=== PATIENT | male | born 1955 | race Caucasian/White ===

== ENCOUNTER → 2016-08-11 | Outpatient (CLI) | payer BC ==
[2016-08-11 08:54] LABS: ALT 41 U/L (21-72); AST 25 U/L (17-59); Cholesterol 139 mg/dL (<200); HDL Cholesterol 54 mg/dL (40-60); Triglycerides 73 mg/dL (<150)
== END | disposition home or self-care (01) ==
LOC: LABWHC1 08:08
PROVIDERS: ATTEND Internal Medicine Interventional Cardiology
DX: E78.2 Mixed hyperlipidemia (principal)
CPT/HCPCS: 36415; 80061; 84450; 84460

== ENCOUNTER 2016-09-27 15:45 | Emergency (ER) | payer BC ==
[2016-09-27 16:10] VITALS: BP 156/89; PULSE 77; RESP 18; TEMP 97.9
--- NOTE | 2016-09-27 16:35 | ED ---
Fall HPI - General Chief Complaint: Fall Stated Complaint: Fall/Rt side pain Time Seen by Provider: 09/27/16 16:19 Source: patient, RN notes reviewed Mode of arrival: ambulatory - History of Present Illness Initial Comments: Patient is a 61-year-old male presents emergency room for evaluation of fall injury. Patient states he fell off his truck onto [address]. Patient states he landed on posterior right ribs. Patient states when having pain ever since. Patient states the incident happened around 10:00 this morning. Patient states he took Aleve with relief of symptoms. Patient states the pain is worse when he twists or presses at the area. Patient denies any trouble breathing or shortness of breath. Patient states the pain is not any worse when he takes a deep breath. Patient denies head trauma or loss of consciousness. Patient denies taking blood thinners. Patient denies any other injuries during incident. Patient denies smoking. - Related Data Allergies Allergy/AdvReac Type Severity Reaction Status Date / Time No Known Allergies Allergy Verified 09/27/16 16:10 Review of Systems ROS Statement: Those systems with pertinent positive or pertinent negative responses have been documented in the HPI. ROS Other: All systems not noted in ROS Statement are negative. Past Medical History Past Medical History: Coronary Artery Disease (CAD), Hypertension History of Any Multi-Drug Resistant Organisms: None Reported Past Surgical History: Heart Catheterization With Stent Past Psychological History: No Psychological Hx Reported Smoking Status: Former smoker Past Alcohol Use History: None Reported Past Drug Use History: None Reported General Exam - General Exam Comments Initial Comments: Sitting in exam room, no acute distress. Limitations: no limitations General appearance: alert, in no apparent distress Head exam: Present: atraumatic, normocephalic, normal inspection Eye exam: Present: normal appearance ENT exam: Present: normal exam Neck exam: Present: normal inspection Respiratory exam: Present: normal lung sounds bilaterally, chest wall tenderness (Pain and tenderness on palpating over the posterior 7/8/9 rib area. No ecchymosis or swelling noted.). Absent: respiratory distress Cardiovascular Exam: Present: regular rate, normal rhythm, normal heart sounds Extremities exam: Present: normal inspection Back exam: Present: normal inspection Neurological exam: Present: alert, oriented X3, CN II-XII intact, normal gait Psychiatric exam: Present: normal affect, normal mood Skin exam: Present: warm, dry, intact, normal color. Absent: rash Course Vital Signs 09/27/16 16:05 Temperature 97.9 F Pulse Rate 77 Respiratory 18 Rate Blood Pressure 156/89 O2 Sat by Pulse 97 Oximetry Medical Decision Making - Medical Decision Making Patient is a 61-year-old male presents emergency room for evaluation of right posterior rib pain after fall. Chest x-ray significant for a rib fracture and possibly ninth rib fracture. Patient declined any pain medications. Patient states he will continue taking Tylenol and Motrin. Advised patient to apply ice over the area. Advised patient to follow-up with his primary care provider for reevaluation. Patient states he understands everything that was discussed with him. Return parameters discussed. Case discussed with Dr. Agudelo. - Radiology Data Radiology results: report reviewed, image reviewed Disposition Clinical Impression: Rib fracture Disposition: HOME SELF-CARE Condition: Good Instructions: Rib Fracture (ED) Additional Instructions: Ice on and off for 10-15 minutes for the next 24-48 hours. Take Tylenol or Motrin as needed for pain. Please follow-up with primary care provider in 24- 48 hours for reevaluation. If new symptoms develop or symptoms worsen, please return to the ER. Referrals: None,Stated [Primary Care Provider] - 1-2 days Time of Disposition: 16:56
--- NOTE | 2016-09-27 17:35 | XR ---
PA chest x-ray with right RIBS HISTORY: Right rib pain, trauma Frontal view of the chest, 4 views of the right RIBS No comparisons There is no pneumothorax or pleural effusion. Cardiac mediastinal silhouette, pulmonary vascularity a nd tarsha within normal limits. Old right-sided rib fracture present at the fourth rib and fifth rib on the right. Eighth and ninth ribs on the right show nondisplaced fractures. IMPRESSION: Eighth rib laterally on the right shows a fracture without displacement, suspect the nint h rib is also fractured
== END 2016-09-27 17:19 | disposition home or self-care (01) ==
LOC: EC 15:45
DX: S22.39XA Fracture of one rib, unspecified side, initial encounter for closed fracture (principal); Z87.891 Personal history of nicotine dependence; W17.89XA Other fall from one level to another, initial encounter; Y93.39 Activity, other involving climbing, rappelling and jumping off
CPT/HCPCS: 99283

== ENCOUNTER → 2017-01-16 | Outpatient (CLI) | payer BC ==
[2017-01-16 10:30] LABS: ALT 52 U/L (21-72); AST 25 U/L (17-59); Alkaline Phosphatase 74 U/L (38-126); Anion Gap 10 mmol/L; Blood Urea Nitrogen 19 mg/dL (9-20); Calcium 9.9 mg/dL (8.4-10.2); Carbon Dioxide 26 mmol/L (22-30); Chloride 104 mmol/L (98-107); Cholesterol 139 mg/dL (<200); Glucose 110 mg/dL (74-99); HDL Cholesterol 50 mg/dL (40-60); Non-African American GFR(MDRD) >60 (>60 ml/min/1.73 sqM); Potassium 5.2 mmol/L (3.5-5.1); Sodium 140 mmol/L (137-145); Total Bilirubin 1.8 mg/dL (0.2-1.3); Total Protein 7.4 g/dL (6.3-8.2)
== END | disposition home or self-care (01) ==
LOC: LABWHC1 08:38
PROVIDERS: ATTEND Internal Medicine Interventional Cardiology
DX: E78.2 Mixed hyperlipidemia (principal)
CPT/HCPCS: 36415; 80053; 80061

== ENCOUNTER → 2017-07-13 | Outpatient (CLI) | payer BC ==
[2017-07-13 10:06] LABS: ALT 39 U/L (21-72); AST 24 U/L (17-59); Albumin 4.4 g/dL (3.5-5.0); Alkaline Phosphatase 54 U/L (38-126); Anion Gap 9 mmol/L; Blood Urea Nitrogen 12 mg/dL (9-20); Calcium 9.5 mg/dL (8.4-10.2); Carbon Dioxide 29 mmol/L (22-30); Chloride 103 mmol/L (98-107); Cholesterol 121 mg/dL (<200); Glucose 100 mg/dL (74-99); HDL Cholesterol 54 mg/dL (40-60); LDL Cholesterol,Calculated 58 mg/dL (0-99); Potassium 4.6 mmol/L (3.5-5.1); Sodium 141 mmol/L (137-145); Total Bilirubin 1.3 mg/dL (0.2-1.3); Total Protein 6.9 g/dL (6.3-8.2); Triglycerides 46 mg/dL (<150)
== END | disposition home or self-care (01) ==
LOC: LABWHC1 08:30
PROVIDERS: ATTEND Internal Medicine Interventional Cardiology
DX: E78.2 Mixed hyperlipidemia (principal)
CPT/HCPCS: 36415; 80053; 80061

== ENCOUNTER → 2018-01-23 | Outpatient (CLI) | payer BC ==
[2018-01-23 08:20] LABS: ALT 50 U/L (21-72); AST 30 U/L (17-59); Cholesterol 139 mg/dL (<200); HDL Cholesterol 57 mg/dL (40-60); LDL Cholesterol,Calculated 70 mg/dL (0-99); Triglycerides 61 mg/dL (<150)
== END | disposition home or self-care (01) ==
LOC: LABWHC1 07:41
PROVIDERS: ATTEND Internal Medicine Interventional Cardiology
DX: E78.2 Mixed hyperlipidemia (principal)
CPT/HCPCS: 36415; 80061; 84450; 84460

== ENCOUNTER → 2018-06-21 | Outpatient (CLI) | payer MEDICARE, BC ==
[2018-06-21 09:30] LABS: Basophils # (A) 0.1 k/uL (0-0.2); Basophils % (A) 1 %; Eosinophils # (A) 0.4 k/uL (0-0.7); Eosinophils % (A) 7 %; HCT 45.8 % (39.0-53.0); HGB 15.4 gm/dL (13.0-17.5); Lymphocytes # (A) 1.7 k/uL (1.0-4.8); Lymphocytes % (A) 30 %; MCH 29.4 pg (25.0-35.0); MCHC 33.6 g/dL (31.0-37.0); MCV 87.3 fL (80.0-100.0); Mean Platelet Volume 6.3; Monocytes # (A) 0.3 k/uL (0-1.0); Monocytes % (A) 6 %; Neutrophils # (A) 2.8 k/uL (1.3-7.7); Neutrophils % (A) 52 %; Platelet Count 281 k/uL (150-450); RBC 5.24 m/uL (4.30-5.90); RDW 12.9 % (11.5-15.5); WBC 5.5 k/uL (3.8-10.6)
[2018-06-23 09:44] LABS: Albumin 4.8 g/dL (3.80-4.90); Albumin/Globulin Ratio 2.18 (1.20-2.10); Anion Gap 8.3 mmol/L (4.00-12.00); Calcium 9.7 mg/dL (8.7-10.3); Carbon Dioxide 25.7 mmol/L (21.6-31.8); Globulin 2.2 g/dL (1.6-3.3); Potassium 4.6 mmol/L (3.5-5.5); Total Bilirubin 1.6 mg/dL (0.3-1.2)
[2018-06-23 09:51] LABS: T4, Free (Free Thyroxine) 1.1 ng/dL (0.80-1.80)
== END ==
LOC: LABWHC1 08:43
PROVIDERS: ATTEND Internal Medicine
DX: E78.00 Pure hypercholesterolemia, unspecified (principal); I10 Essential (primary) hypertension; K62.5 Hemorrhage of anus and rectum; Z12.5 Encounter for screening for malignant neoplasm of prostate
CPT/HCPCS: 84439; 80061; 80053; 84443; 85025; 36415; G0103

== ENCOUNTER → 2019-03-07 | Outpatient (CLI) | payer MEDICARE, BC ==
[2019-03-07 08:39] LABS: HCT 44.9 % (39.0-53.0); HGB 15.3 gm/dL (13.0-17.5); MCH 30.1 pg (25.0-35.0); MCV 88.5 fL (80.0-100.0); Mean Platelet Volume 5.7; Platelet Count 266 k/uL (150-450); RBC 5.07 m/uL (4.30-5.90)
[2019-03-07 16:46] LABS: African American GFR (CKD) 90.5 (60.0-200.0); Albumin 4.7 g/dL (3.80-4.90); Albumin/Globulin Ratio 2.35 (1.60-3.17); Anion Gap 7.7 mmol/L (4.00-12.00); Calcium 9.6 mg/dL (8.7-10.3); Carbon Dioxide 27.3 mmol/L (21.6-31.8); Chol/HDL Ratio 2.6; LDL Cholesterol,Calculated 65.6 mg/dL (0.0-131.0); Potassium 4.7 mmol/L (3.5-5.5); Total Bilirubin 1.5 mg/dL (0.3-1.2); Total Protein 6.7 g/dL (6.2-8.2); VLDL Calculation 11.4 mg/dL (5.00-40.00)
== END | disposition home or self-care (01) ==
LOC: LABWHC1 08:06
PROVIDERS: ATTEND Nurse Practitioner Adult Health
DX: E78.2 Mixed hyperlipidemia (principal); I10 Essential (primary) hypertension; E78.00 Pure hypercholesterolemia, unspecified
CPT/HCPCS: 36415; 80053; 80061; 85027

== ENCOUNTER → 2019-05-15 | Outpatient (CLI) | payer MEDICARE, BC ==
--- NOTE | 2019-05-15 16:13 | XR ---
EXAMINATION TYPE: XR knee limited RT DATE OF EXAM: 05/15/2019 CLINICAL HISTORY: pain TECHNIQUE: Three views of the right knee are obtained. COMPARISON: None. FINDINGS: There is no acute fracture/dislocation. The tri-compartment joint spaces appear within no rmal limits. The overlying soft tissue appears unremarkable. IMPRESSION: There is no acute fracture or dislocation.ICD 10 NO FRACTURE, INITIAL EVALUATION
== END | disposition home or self-care (01) ==
LOC: RADXRYALE 15:53
PROVIDERS: ATTEND Internal Medicine
DX: M25.561 Pain in right knee (principal)

== ENCOUNTER → 2019-11-10 | Outpatient (CLI) | payer MEDICARE ==
[2019-11-10 16:37] LABS: LDL Cholesterol,Calculated 78.8 mg/dL (0.0-131.0); VLDL Calculation 15.2 mg/dL (5.00-40.00)
== END | disposition home or self-care (01) ==
LOC: LABWHC1 07:54
PROVIDERS: ATTEND Nurse Practitioner Adult Health
DX: E78.2 Mixed hyperlipidemia (principal)
CPT/HCPCS: 36415; 80061; 84450; 84460

== ENCOUNTER → 2020-02-29 | Outpatient (CLI) | payer MEDICARE, BC | END | disposition home or self-care (01) | LOC: LABWHC1 14:16 | PROVIDERS: ATTEND Internal Medicine | DX: R19.7 Diarrhea, unspecified (principal) | CPT/HCPCS: U0003; C9803 ==

== ENCOUNTER 2020-03-18 19:48 | Observation (INO) | payer MEDICARE, BC ==
[2020-03-18] MEDS ORDERED: ASPIRIN 81 MG PO STA (20:10)
--- NOTE | 2020-03-18 20:41 | ED ---
General Adult HPI - General Chief complaint: Shortness of Breath Stated complaint: chills,sob Time Seen by Provider: 03/18/20 20:01 Source: patient Mode of arrival: ambulatory Limitations: no limitations - History of Present Illness Initial comments: 65 year-old male patient with past history significant for hypertension and hyperlipidemia, presents to the emergency department for evaluation of chest pain and feeling unwell. Patient states that symptoms started a little over two weeks ago when he had an illness with vomiting and diarrhea. States that he did stop vomiting and bowel movements are now normal he still does not feel well. He states that he has intermittent substernal chest pain. Intermittent nausea, heart burn, and lack of appetite. States that he feels mildly short of breath also intermittently. He is also reporting generalized fatigue. He did have a nuclear stress test about two weeks ago, states that one portion was "abnormal" so they did not have him complete the treadmill portion. Patient denies any recent rash, fever, chills, cough, abdominal pain, diarrhea, constipation, back pain, numbness, tingling, dizziness, hematuria, dysuria, urinary urgency, urinary frequency, headache, visual changes, or any other complaints. - Related Data Home Medications Medication Instructions Recorded Confirmed Aspirin EC [Ecotrin] 325 mg PO DAILY 03/18/20 03/18/20 Atorvastatin Calcium [Lipitor] 40 mg PO DAILY 03/18/20 03/18/20 Cholecalciferol [Vitamin D3 (25 1,000 unit PO DAILY 03/18/20 03/18/20 Mcg = 1000 Iu)] Metoprolol Tartrate [Lopressor] 100 mg PO BID 03/18/20 03/18/20 Multivitamins, Thera [Multivitamin 1 tab PO DAILY 03/18/20 03/18/20 (formulary)] Omeprazole 20 mg PO DAILY 03/18/20 03/18/20 amLODIPine [Norvasc] 10 mg PO DAILY 03/18/20 03/18/20 Allergies Allergy/AdvReac Type Severity Reaction Status Date / Time No Known Allergies Allergy Verified 03/18/20 21:45 Review of Systems ROS Statement: Those systems with pertinent positive or pertinent negative responses have been documented in the HPI. ROS Other: All systems not noted in ROS Statement are negative. Past Medical History Past Medical History: Coronary Artery Disease (CAD), Hypertension History of Any Multi-Drug Resistant Organisms: None Reported Past Surgical History: Heart Catheterization With Stent Past Psychological History: No Psychological Hx Reported Smoking Status: Never smoker Past Alcohol Use History: None Reported Past Drug Use History: None Reported General Exam Limitations: no limitations General appearance: alert, in no apparent distress, other (This is a well- developed, well-nourished adult male patient in no acute distress. Vital signs upon presentation are temperature 99.0F, pulse 99, respirations 22, blood pr essure 149/78, pulse ox 97% on room air.) Eye exam: Present: normal appearance, PERRL, EOMI. Absent: scleral icterus, conjunctival injection, periorbital swelling ENT exam: Present: normal exam, normal oropharynx, mucous membranes moist Respiratory exam: Present: normal lung sounds bilaterally. Absent: respiratory distress, wheezes, rales, rhonchi, stridor Cardiovascular Exam: Present: regular rate, normal rhythm, normal heart sounds. Absent: systolic murmur, diastolic murmur, rubs, gallop, clicks GI/Abdominal exam: Present: soft, normal bowel sounds. Absent: distended, tenderness, guarding, rebound, rigid Neurological exam: Present: alert, oriented X3, CN II-XII intact Psychiatric exam: Present: normal affect, normal mood Skin exam: Present: warm, dry, intact, normal color. Absent: rash Course Vital Signs 03/18/20 03/18/20 03/18/20 19:53 21:12 22:02 Temperature 99.0 F Pulse Rate 99 83 77 Pulse Rate [ Pulse Oximetery ] Respiratory 22 19 17 Rate Blood Pressure 149/78 138/80 116/73 Blood Pressure [Left Arm] O2 Sat by Pulse 97 96 95 Oximetry 03/18/20 22:56 Temperature 98.6 F Pulse Rate Pulse Rate [ 62 Pulse Oximetery ] Respiratory 17 Rate Blood Pressure Blood Pressure 114/69 [Left Arm] O2 Sat by Pulse 95 Oximetry EKG Findings - EKG Comments: EKG Findings:: EKG obtained at 2016 shows normal sinus rhythm with a left bundle branch block. Ventricular rate is 89, SD interval 192, QRS duration 142, QT 394, QTC 479. Medical Decision Making - Medical Decision Making 0-1-jucq-old male patient presents to the emergency department today for evaluation of multiple symptoms including chest pain, shortness of breath, fatigue. Physical examination is relatively unremarkable. Abdomen soft and nontender. Labs reviewed and did reveal decreased white blood cell count at 3.3 with low lymphocytes at 0.9. Glucose is 126. Troponin negative. EKG showed left bundle branch block, no previous for comparison the does report "abnormal EKG history". Patient will be admitted, serial troponins obtained. Cardiology will be consulted. - Lab Data Result diagrams: 03/18/20 20:54 03/18/20 20:54 Lab Results 03/18/20 03/18/20 03/18/20 Range/Units 20:54 20:54 20:54 WBC 3.3 L (3.8-10.6) k/uL RBC 4.91 (4.30-5.90) m/uL Hgb 14.2 (13.0-17.5) gm/dL Hct 42.1 (39.0-53.0) % MCV 85.7 (80.0-100.0) fL MCH 28.9 (25.0-35.0) pg MCHC 33.7 (31.0-37.0) g/dL RDW 12.2 (11.5-15.5) % Plt Count 279 (150-450) k/uL Neutrophils % 54 % Lymphocytes % 28 % Monocytes % 11 % Eosinophils % 1 % Basophils % 3 % Neutrophils # 1.8 (1.3-7.7) k/uL Lymphocytes # 0.9 L (1.0-4.8) k/uL Monocytes # 0.4 (0-1.0) k/uL Eosinophils # 0.0 (0-0.7) k/uL Basophils # 0.1 (0-0.2) k/uL PT 10.2 (9.0-12.0) sec INR 1.0 (<1.2) APTT 24.5 (22.0-30.0) sec Sodium 134 L (137-145) mmol/L Potassium 4.2 (3.5-5.1) mmol/L Chloride 103 (98-107) mmol/L Carbon Dioxide 25 (22-30) mmol/L Anion Gap 6 mmol/L BUN 16 (9-20) mg/dL Creatinine 0.82 (0.66-1.25) mg/dL Est GFR (CKD-EPI)AfAm >90 (>60 ml/min/1.73 sqM) Est GFR (CKD-EPI)NonAf >90 (>60 ml/min/1.73 sqM) Glucose 126 H (74-99) mg/dL Calcium 9.0 (8.4-10.2) mg/dL Magnesium 2.1 (1.6-2.3) mg/dL Total Bilirubin 0.9 (0.2-1.3) mg/dL AST 33 (17-59) U/L ALT 25 (4-49) U/L Alkaline Phosphatase 69 (38-126) U/L Troponin I (0.000-0.034) ng/mL Total Protein 6.9 (6.3-8.2) g/dL Albumin 4.0 (3.5-5.0) g/dL Lipase 62 (23-300) U/L 03/18/20 Range/Units 20:54 WBC (3.8-10.6) k/uL RBC (4.30-5.90) m/uL Hgb (13.0-17.5) gm/dL Hct (39.0-53.0) % MCV (80.0-100.0) fL MCH (25.0-35.0) pg MCHC (31.0-37.0) g/dL RDW (11.5-15.5) % Plt Count (150-450) k/uL Neutrophils % % Lymphocytes % % Monocytes % % Eosinophils % % Basophils % % Neutrophils # (1.3-7.7) k/uL Lymphocytes # (1.0-4.8) k/uL Monocytes # (0-1.0) k/uL Eosinophils # (0-0.7) k/uL Basophils # (0-0.2) k/uL PT (9.0-12.0) sec INR (<1.2) APTT (22.0-30.0) sec Sodium (137-145) mmol/L Potassium (3.5-5.1) mmol/L Chloride (98-107) mmol/L Carbon Dioxide (22-30) mmol/L Anion Gap mmol/L BUN (9-20) mg/dL Creatinine (0.66-1.25) mg/dL Est GFR (CKD-EPI)AfAm (>60 ml/min/1.73 sqM) Est GFR (CKD-EPI)NonAf (>60 ml/min/1.73 sqM) Glucose (74-99) mg/dL Calcium (8.4-10.2) mg/dL Magnesium (1.6-2.3) mg/dL Total Bilirubin (0.2-1.3) mg/dL AST (17-59) U/L ALT (4-49) U/L Alkaline Phosphatase (38-126) U/L Troponin I <0.012 (0.000-0.034) ng/mL Total Protein (6.3-8.2) g/dL Albumin (3.5-5.0) g/dL Lipase (23-300) U/L - Radiology Data Radiology results: report reviewed, image reviewed Two-view x-ray of the chest is obtained. Report was reviewed in its entirety. Impression by Dr. Monae shows minimal left basilar atelectasis. Otherwise no acute cardiopulmonary abnormality. Disposition Clinical Impression: Chest pain, Dyspnea, Fatigue Disposition: ADMITTED IP TO THIS [facility] Condition: Serious Decision to Admit Reason: Admit from EC Decision Date: 03/18/20 Decision Time: 22:30
--- NOTE | 2020-03-18 20:45 | XR ---
EXAMINATION TYPE: XR chest 2V DATE OF EXAM: 03/18/2020 COMPARISON: NONE HISTORY: Chest pain. TECHNIQUE: Frontal and lateral views of the chest are obtained. FINDINGS: There is minimal left basilar atelectasis. No pleural effusion, or pneumothorax seen. The cardiac silhouette size is within normal limits. The osseous structures are intact. IMPRESSION: Minimal left basilar atelectasis. Otherwise no acute cardiopulmonary abnormality.
[2020-03-18 21:15] LABS: Basophils # (A) 0.1 k/uL (0-0.2); Basophils % (A) 3 %; Eosinophils % (A) 1 %; HCT 42.1 % (39.0-53.0); HGB 14.2 gm/dL (13.0-17.5); Lymphocytes # (A) 0.9 k/uL (1.0-4.8); Lymphocytes % (A) 28 %; MCH 28.9 pg (25.0-35.0); MCHC 33.7 g/dL (31.0-37.0); MCV 85.7 fL (80.0-100.0); Mean Platelet Volume 6.9; Monocytes # (A) 0.4 k/uL (0-1.0); Monocytes % (A) 11 %; Neutrophils # (A) 1.8 k/uL (1.3-7.7); Neutrophils % (A) 54 %; Platelet Count 279 k/uL (150-450); RBC 4.91 m/uL (4.30-5.90); RDW 12.2 % (11.5-15.5); WBC 3.3 k/uL (3.8-10.6)
[2020-03-18 21:26] LABS: ALT 25 U/L (4-49); AST 33 U/L (17-59); African American GFR (CKD) >90 (>60 ml/min/1.73 sqM); Alkaline Phosphatase 69 U/L (38-126); Anion Gap 6 mmol/L; Blood Urea Nitrogen 16 mg/dL (9-20); Carbon Dioxide 25 mmol/L (22-30); Chloride 103 mmol/L (98-107); Glucose 126 mg/dL (74-99); Lipase 62 U/L (23-300); Magnesium 2.1 mg/dL (1.6-2.3); Non-African American GFR(CKD) >90 (>60 ml/min/1.73 sqM); Partial Thromboplastin Time 24.5 sec (22.0-30.0); Potassium 4.2 mmol/L (3.5-5.1); Prothrombin Time 10.2 sec (9.0-12.0); Sodium 134 mmol/L (137-145); Total Bilirubin 0.9 mg/dL (0.2-1.3); Total Protein 6.9 g/dL (6.3-8.2)
[2020-03-18] MEDS ORDERED: NITROGLYCERIN SL TABS 0.4 MG TAB SUBLINGUAL PRN (22:25)
[2020-03-19 04:03] LABS: Cholesterol 87 mg/dL (<200); HDL Cholesterol 24 mg/dL (40-60); LDL Cholesterol,Calculated 53 mg/dL (0-99); Triglycerides 52 mg/dL (<150)
[2020-03-19 08:00] VITALS: BP 112/67; PULSE 88; RESP 14; TEMP 99.3
[2020-03-19] MEDS ORDERED: ASPIRIN 81 MG PO STA (08:30)
[2020-03-19] MEDS ORDERED: ATORVASTATIN 40 MG TAB PO SCH (09:00)
[2020-03-19] MEDS ORDERED: CHOLECALCIFEROL 1,000 UNIT TAB PO SCH (09:00)
[2020-03-19] MEDS ORDERED: ASPIRIN 325 MG TAB PO SCH (09:00)
[2020-03-19] MEDS ORDERED: METOPROLOL TARTRATE 50 MG TAB PO SCH (09:00)
[2020-03-19] MEDS ORDERED: MULTIVITAMINS, THERA 1 EACH TAB PO SCH (09:00)
[2020-03-19] MEDS ORDERED: PANTOPRAZOLE 40 MG TABLET PO SCH (09:00)
[2020-03-19] MEDS ORDERED: amLODIPine 5 MG TAB PO SCH (09:00)
--- NOTE | 2020-03-19 10:09 | CONS ---
CONSULTATION This is a 65-year-old gentleman with a history of coronary artery stenting performed in 2012, details of which are unavailable. He sees Dr. Nolasco in the outpatient setting. He also has hypertension and hyperlipidemia. Recently on the or so of this month, he had a Lexiscan stress test which revealed good myocardial perfusion and function without ischemia. He comes in with a sharp pain in the left lower left aspect of the chest, very atypical in nature. The quality of the pain is atypical. He has been admitted and 2 sets of troponins are normal. EKG revealed a sinus with a left bundle. He is asymptomatic. He also had some illness with some vomiting, diarrhea about 2 weeks ago. He seems to have recovered from that. He is asymptomatic at the time of my evaluation. Resting comfortably without symptoms. PAST MEDICAL HISTORY: 1. CAD with stenting, details unavailable. Normal Lexiscan stress test less than 2 weeks ago. 2. Hypertension. 3. Hyperlipidemia. ALLERGIES: None. MEDICATIONS: Norvasc 10 mg daily, omeprazole 20 mg daily, metoprolol tartrate 100 mg b.i.d., multivitamins, atorvastatin 40 mg daily, aspirin 81 mg daily. PHYSICAL EXAMINATION: On examination, blood pressure is 120/70. Pulse rate is 70 per minute. HEENT was unremarkable. Fundus was not examined by me. Neck is supple. No JVD. I do not hear a carotid bruit. There is no thyromegaly. Heart exam reveals S1, S2 heard normally. No rub, murmur or gallop. Lungs are clear. Abdomen is soft, nontender. Lower extremities reveal normal pulses. No edema. Central nervous system is normal. EKG revealed sinus with left bundle. No acute changes. LABORATORY DATA: Laboratory data revealed unremarkable troponins. IMPRESSION: 1. Atypical chest pain. 2. Known CAD with previous stenting and a normal Lexiscan stress test less than 2 weeks ago. 3. Hypertension. 4. Hyperlipidemia. RECOMMENDATIONS: I am recommending that he can be discharged from a cardiac standpoint. No further workup is necessary. I will reduce his aspirin to 81 mg daily, Norvasc to 5 mg daily and Lopressor to 100 mg daily. Increase activity and he can be discharged. His white count is somewhat low and this can be addressed as an outpatient. I discussed my thoughts in detail with the patient. Thank you very much for the consult. MMODL / IJN: [id number] /
--- NOTE | 2020-03-19 16:30 | HP ---
HISTORY AND PHYSICAL HISTORY AND PHYSICAL AND DISCHARGE SUMMARY: CHIEF COMPLAINTS: Chest pain, abdominal pain, nausea, diarrhea. HISTORY OF PRESENT ILLNESS: This 65-year-old gentleman with a past medical history of multiple medical problems including CAD, hypertension, history of CAD stent being followed by Dr. Smith in the outpatient setting recently had a stress test about 2 weeks ago which apparently was showing no evidence of reversible ischemia. Currently, the patient complaining of on and off upper abdominal pain, lower chest pain, nausea, diarrhea. Patient came to [facility] and was admitted for further evaluation and treatment. Initial troponins negative. Cardiology has seen the patient and recommended outpatient followup. The patient recently had a stress test and the white count is 3.3, sodium is 134, recommended outpatient followup. The Covid-19 testing was also requested. There is no history of fever, rigors. No history of headache, loss of consciousness, seizures. No shortness of breath, hematochezia, melena. No history of any contact with Covid patients either. PAST MEDICAL HISTORY: History of CAD/stent and hypertension. MEDICATIONS: Prior to admission include home medications are: Omeprazole, multivitamins and vitamin D3, Ecotrin, Norvasc, Lopressor and Lipitor. ALLERGIES: None. FAMILY HISTORY: No history of heart disease or strokes in the family. SOCIAL HISTORY: No history of smoking. No history of alcohol intake. REVIEW OF SYSTEMS: ENT: No diminished vision. No diminished hearing. CARDIOVASCULAR: As mentioned earlier. RESPIRATION as mentioned earlier. GI: As mentioned earlier. no dysuria. NERVOUS SYSTEM: No numbness or weakness. ALLERGY/IMMUNOLOGY: No asthma or hayfever. MUSCULOSKELETAL as mentioned earlier. HEMATOLOGY/ONCOLOGY: No history of anemia. ENDOCRINE: No history of diabetes or hypothyroidism. CONSTITUTIONAL: As mentioned earlier. DERMATOLOGY: Negative. RHEUMATOLOGY negative. PSYCHIATRY as mentioned earlier. PHYSICAL EXAMINATION: Alert and oriented times three. Pulse 88, blood pressure 112/67, respirations 14, temperature 99.2, pulse ox 91 percent on room air. HEENT: Conjunctivae normal. NECK: No JVD. CARDIOVASCULAR: S1, S2 muffled. RESPIRATORY: Breath sounds diminished in the bases. No rhonchi. No crackles. ABDOMEN: Soft, nontender. No mass palpable. LEGS: No edema. No swelling. NERVOUS SYSTEM: Higher functions as mentioned earlier. Moves all four limbs. No focal motor or sensory deficits. LYMPHATICS: No lymph nodes palpable in the neck, axillae or groin. SKIN: No ulcer, no rash and no bleeding. JOINTS: No active deforming arthropathy. LABS: WBC 3.3, sodium 134. Other labs are noted. ASSESSMENT: 1. Abdominal pain, nausea, diarrhea possible acute viral syndrome and gastroenteritis. 2. Chest pain, myocardial infarction ruled out. 3. History of recent negative stress test. 4. Hypokalemia. 5. Hyponatremia. 6. History of coronary artery disease/stent. 7. Hypertension. RECOMMENDATIONS AND DISCUSSION: In this 65-year-old gentleman who presented with multiple medical issues, at this time, I recommend to continue the current medication. Myocardial infarction ruled out. Cardiology, Dr. Pauly Koo saw the patient and cleared the patient for discharge. The patient had upper GI symptoms, the symptomatology could indicate a viral syndrome. COVID-19 has been requested as mentioned earlier, but however the patient is stable. Patient being discharged in stable condition with guarded prognosis. The patient is advised to follow up with Dr. Smith closely and as well as Cardiology closely in the outpatient setting. DISCHARGE ADVICE AND MEDICATIONS: 1. Discharge diet is cardiac diet. 2. Activity limited until followup. 3. Follow up with Dr. Smith and Dr. Nolasco as recommended. 4. Ecotrin 320 mg daily. 5. Lipitor 40 mg daily. 6. Lopressor 100 mg. 7. Multivitamins one daily. 8. Norvasc 10 mg. 9. Omeprazole 20 mg daily. 10.Vitamin D3 1000 daily. Once again the patient discharged in stable condition with guarded prognosis. MMODL / IJN: [id number] /
--- NOTE | 2020-05-05 12:43 | CDI ---
Outpatient Clinical Documentation Clarification Patient: Pete Cordoba Acct [id number] Patient status: Observation Admit - 03/18/20 Discharge - 03/19/20 Dr. Mohan, 65 yr old male admitted to observation via ER with chief complaints: chest pain, abdominal pain, nausea and diarrhea. Covid test requested on 03/18/20 and resulted as Detected on 03/21/20. Would you like to add addendum to your combo H&P/D Summary related to a diagnosis related to the Covid test result? thank you for your consideration. Kiana Best [employer] Coordinator Fabiano __ MTDD
--- NOTE | 2020-05-08 14:26 | DS ---
DISCHARGE SUMMARY ADDENDUM: FINAL DIAGNOSIS: Multiple symptoms secondary to acute COVID-19 infection confirmed by lab tests. MMODL / IJN: [id number] /
== END 2020-03-19 13:05 | disposition home or self-care (01) ==
LOC: EC 19:48 → 1SOBS 22:32
PROVIDERS: ADMIT Hospitalist; ATTEND Hospitalist
DX: U07.1 COVID-19 (principal); R07.89 Other chest pain; E78.5 Hyperlipidemia, unspecified; E87.1 Hypo-osmolality and hyponatremia; E87.6 Hypokalemia; I10 Essential (primary) hypertension; I25.10 Atherosclerotic heart disease of native coronary artery without angina pectoris; I44.7 Left bundle-branch block, unspecified; Z79.82 Long term (current) use of aspirin; Z95.5 Presence of coronary angioplasty implant and graft; R11.0 Nausea; R10.10 Upper abdominal pain, unspecified
CPT/HCPCS: 93005 ×2; 99285; 36415; 80061; 80053; 83690; 83735; 84484 ×2; 85025; 85610; 85730; 71046; G0378 ×2; U0003

== ENCOUNTER → 2020-10-20 | Outpatient (CLI) | payer MEDICARE ==
[2020-10-20 21:59] LABS: African American GFR (CKD) 107.1 (60.0-200.0); Albumin 4.6 g/dL (3.80-4.90); Albumin/Globulin Ratio 1.92 (1.60-3.17); Anion Gap 9.1 mmol/L (4.00-12.00); BUN/Creat Ratio 23.75 Ratio (12.00-20.00); Calcium 9.9 mg/dL (8.7-10.3); Carbon Dioxide 21.9 mmol/L (21.6-31.8); Chol/HDL Ratio 4.15; Globulin 2.4 g/dL (1.6-3.3); LDL Cholesterol,Calculated 154.4 mg/dL (0.0-131.0); Non-African American GFR(CKD) 92.4 (60.0-200.0); Potassium 4.4 mmol/L (3.5-5.5); Total Bilirubin 0.9 mg/dL (0.2-1.2); VLDL Calculation 18.6 mg/dL (5.00-40.00)
== END | disposition home or self-care (01) ==
LOC: LABWHC1 08:45
PROVIDERS: ATTEND Internal Medicine Interventional Cardiology
DX: E78.2 Mixed hyperlipidemia (principal)
CPT/HCPCS: 36415; 80053; 80061

== ENCOUNTER → 2020-11-16 | Outpatient (CLI) | payer MEDICARE ==
--- NOTE | 2020-11-17 08:27 | XR ---
EXAMINATION TYPE: XR shoulder complete RT DATE OF EXAM: 11/16/2020 Comparison: None Clinical History: 65-year-old male [id number], right shoulder PAIN Findings: Mild degenerative joint space narrowing and marginal spurring at the AC joint. Subacromial space is p reserved. Some irregularity of the greater tuberosity. There is also some mild degenerative spurring at the glenohumeral joint. No acute fracture, subluxation, or dislocation. Visualized right hemithora x is clear. Impression: Mild AC joint OA. Additional underlying mild OA at the glenohumeral joint. Some bony changes may refl ect chronic rotator cuff tendinopathy. No acute osseous abnormality seen.
== END | disposition home or self-care (01) ==
LOC: RADXRYALE 16:47
PROVIDERS: ATTEND Internal Medicine
DX: M19.011 Primary osteoarthritis, right shoulder (principal)

== ENCOUNTER → 2021-03-17 | Outpatient (CLI) | payer MEDICARE ==
[2021-03-17 17:03] LABS: African American GFR (CKD) 103.5 (60.0-200.0); Albumin 4.8 g/dL (3.8-4.9); Albumin/Globulin Ratio 2.09 (1.60-3.17); BUN/Creat Ratio 14.14 Ratio (12.00-20.00); Blood Urea Nitrogen 12.1 mg/dL (9.0-27.0); Calcium 9.5 mg/dL (8.7-10.3); Carbon Dioxide 19.2 mmol/L (21.6-31.8); Chol/HDL Ratio 2.99 Ratio; Globulin 2.3 g/dL (1.6-3.3); HDL Cholesterol 56.5 mg/dL (40.00-60.00); LDL Cholesterol,Calculated 96.9 mg/dL (0.0-131.0); Non-African American GFR(CKD) 89.3 (60.0-200.0); Potassium 4.3 mmol/L (3.5-5.5); Total Bilirubin 1.3 mg/dL (0.30-1.20); Total Protein 7.1 g/dL (6.2-8.2); VLDL Calculation 15.6 mg/dL (5.00-40.00)
== END | disposition home or self-care (01) ==
LOC: LABWHC1 08:04
PROVIDERS: ATTEND Nurse Practitioner Adult Health
DX: I10 Essential (primary) hypertension (principal); E78.2 Mixed hyperlipidemia
CPT/HCPCS: 36415; 80053; 80061

== ENCOUNTER → 2021-10-05 | Outpatient (CLI) | payer MEDICARE ==
[2021-10-05 14:51] LABS: ALT 25 U/L (10-49); AST 21 U/L (14-35); African American GFR (CKD) 88.2 (60.0-200.0); Albumin 4.5 g/dL (3.8-4.9); Albumin/Globulin Ratio 1.76 (1.60-3.17); Alkaline Phosphatase 59 U/L (41-126); BUN/Creat Ratio 9.88 Ratio (12.00-20.00); Calcium 9.4 mg/dL (8.7-10.3); Carbon Dioxide 24.6 mmol/L (20.0-27.5); Chloride 104 mmol/L (96-109); Chol/HDL Ratio 2.79 Ratio; Globulin 2.6 g/dL (1.6-3.3); Glucose 123 mg/dL (70-110); LDL Cholesterol,Calculated 76.5 mg/dL (0.0-131.0); Non-African American GFR(CKD) 76.1 (60.0-200.0); Potassium 4.5 mmol/L (3.5-5.5); Sodium 140 mmol/L (135-145); Total Protein 7.1 g/dL (6.2-8.2)
== END | disposition home or self-care (01) ==
LOC: LABWHC1 07:53
PROVIDERS: ATTEND Internal Medicine Interventional Cardiology
DX: E78.2 Mixed hyperlipidemia (principal)
CPT/HCPCS: 36415; 80053; 80061

== ENCOUNTER → 2021-12-05 | Outpatient (CLI) | payer MEDICARE ==
--- NOTE | 2021-12-05 12:19 | US ---
EXAMINATION TYPE: US thyroid st tissue head/neck DATE OF EXAM: 12/05/2021 COMPARISON: NONE CLINICAL HISTORY: E07.9 Disorder of thyroid. Patient states doctor felt thyroid was enlarged. GLAND SIZE: Right Lobe: 7.1 x 3.0 x 2.5 cm Overall Parenchyma: heterogenous Left Lobe: 6.6 x 3.1 x 2.9 cm Overall Parenchyma: heterogeneous Isthmus Thickness: 0.6 cm NODULES RIGHT: # of nodules measured on right: 1 1. 0.9 X 0.8 x 0.5 cm, upper lateral, solid or almost completely solid, hypoechoic nodule, which is wider than tall, with smooth margins, without echogenic foci. LEFT: # of nodules measured on left: 1 1. 1.2 X 1.3 x 0.8 cm, upper lateral, solid or almost completely solid, isoechoic nodule, which is wider than tall, with ill-defined margins, without echogenic foci. ISTHMUS: # of nodules measured in the isthmus: 0 Bilateral neck scanned, no evidence of lymphadenopathy. IMPRESSION: Thyroidomegaly with bilateral heterogeneity and nonspecific nodularity.
== END | disposition home or self-care (01) ==
LOC: RADUSWWP 11:45
PROVIDERS: ATTEND Internal Medicine
DX: E04.2 Nontoxic multinodular goiter (principal)
CPT/HCPCS: 76536

== ENCOUNTER → 2021-12-15 | Outpatient (CLI) | payer MEDICARE ==
--- NOTE | 2021-12-15 14:01 | US ---
EXAMINATION TYPE: US thyroid st tissue head/neck DATE OF EXAM: 12/15/2021 COMPARISON: US CLINICAL HISTORY: E04.2 NONTOXIC MULTINODULAR GOITER. Goiter GLAND SIZE: Right Lobe: 7.7 x 2.4 x 3.0 cm Overall Parenchyma: heterogenous Left Lobe: 7.6 x 3.2 x 2.7 cm Overall Parenchyma: heterogeneous Isthmus Thickness: 0.5 cm NODULES RIGHT: # of nodules measured on right: 1 1. 1.2 X 1.1 x 1.3 cm, mid lateral, solid or almost completely solid, isoechoic with hypoechoic jarret ter nodule, which is wider than tall, with ill-defined margins, without echogenic foci. Prior size: 0.9 x 0.8 x 0.5 cm LEFT: # of nodules measured on left: 1 1. 0.9 X 0.9 x 0.9 cm, upper lateral, solid or almost completely solid, isoechoic nodule, which is wider than tall, with ill-defined margins, without echogenic foci. Prior size: 1.2 x 1.3 x 0.8 cm ISTHMUS: # of nodules measured in the isthmus: 1 1. 0.9 X 0.7 x 0.9 cm solid or almost completely solid, isoechoic nodule, which is wider than tall, with ill-defined margins, without echogenic foci. Prior size: Not visualized on prior Bilateral neck scanned, no evidence of lymphadenopathy. Nodules bilaterally, right nodule felt to jessica sure larger than previously reported on recent scan. Bilateral thyroid enlarged, heterogeneous and d ifficult to visualize lower poles bilaterally due to large size. IMPRESSION: 1. Glandular enlargement and heterogeneity. 2. Slight enlargement right thyroid nodule. Slight decrease in size of left-sided thyroid nodule.
== END | disposition home or self-care (01) ==
LOC: RADUSWWP 13:13
PROVIDERS: ATTEND Internal Medicine Endocrinology, Diabetes & Metabolism
DX: E04.2 Nontoxic multinodular goiter (principal)
CPT/HCPCS: 76536

== ENCOUNTER → 2022-03-08 | Outpatient (CLI) | payer MEDICARE ==
[2022-03-08 19:25] LABS: ALT 26 U/L (10-49); AST 19 U/L (14-35); African American GFR (CKD) 100.6 (60.0-200.0); Albumin 4.8 g/dL (3.8-4.9); Albumin/Globulin Ratio 2.09 (1.60-3.17); Alkaline Phosphatase 62 U/L (41-126); BUN/Creat Ratio 10.89 Ratio (12.00-20.00); Blood Urea Nitrogen 9.8 mg/dL (9.0-27.0); Calcium 9.5 mg/dL (8.7-10.3); Carbon Dioxide 27.4 mmol/L (20.0-27.5); Chloride 101 mmol/L (96-109); Chol/HDL Ratio 2.58 Ratio; Globulin 2.3 g/dL (1.6-3.3); Glucose 108 mg/dL (70-110); LDL Cholesterol,Calculated 81.8 mg/dL (0.0-131.0); Non-African American GFR(CKD) 86.8 (60.0-200.0); Potassium 4.7 mmol/L (3.5-5.5); Sodium 138 mmol/L (135-145); Total Protein 7.1 g/dL (6.2-8.2); VLDL Calculation 14.28 mg/dL (5.00-40.00)
[2022-03-08 19:29] LABS: Basophils # (A) 0.07 X 10*3/uL (0.00-0.10); Eosinophils # (A) 0.49 X 10*3/uL (0.04-0.35); Eosinophils % (A) 6.7 %; HCT 45.2 % (39.6-50.0); HGB 15.4 g/dL (13.0-17.0); Immature Grans, Automated 0.1 %; Lymphocytes # (A) 2.38 X 10*3/uL (0.90-5.00); Lymphocytes % (A) 32.5 %; MCH 29.2 pg (27.0-32.0); MCHC 34.1 g/dL (32.0-37.0); MCV 85.8 fL (80.0-97.0); Mean Platelet Volume 9.3 fL (9.5-12.2); Monocytes # (A) 0.67 X 10*3/uL (0.20-1.00); Monocytes % (A) 9.1 %; NRBC Per 100 WBC 0 /100 WBCS (0.0-0.0); Neutrophils # (A) 3.71 X 10*3/uL (1.80-7.70); Neutrophils % (A) 50.6 %; Platelet Count 309 X 10*3/uL (140-440); RBC 5.27 X 10*6/uL (4.40-5.60); RDW 13.2 % (11.5-14.5); WBC 7.33 X 10*3/uL (4.50-10.00)
== END | disposition home or self-care (01) ==
LOC: LABWHC1 12:06
PROVIDERS: ATTEND Internal Medicine
DX: I10 Essential (primary) hypertension (principal); E78.00 Pure hypercholesterolemia, unspecified; E80.4 Gilbert syndrome; K21.9 Gastro-esophageal reflux disease without esophagitis
CPT/HCPCS: 36415; 80053; 80061; 83036; 85025

== ENCOUNTER → 2022-10-09 | Outpatient (CLI) | payer MEDICARE ==
[2022-10-09 14:17] LABS: ALT 28 U/L (10-49); AST 22 U/L (14-35); Chol/HDL Ratio 2.88 Ratio; LDL Cholesterol,Calculated 73.5 mg/dL (0.0-131.0)
== END | disposition home or self-care (01) ==
LOC: LABWHC1 07:58
PROVIDERS: ATTEND Nurse Practitioner Adult Health
DX: E78.2 Mixed hyperlipidemia (principal)
CPT/HCPCS: 36415; 80061; 84450; 84460

== ENCOUNTER → 2022-12-17 | Outpatient (CLI) | payer MEDICARE ==
[2022-12-17 16:24] LABS: ALT 30 U/L (10-49); AST 21 U/L (14-35); Albumin 4.8 d/dL (3.8-4.9); Albumin/Globulin Ratio 2.18 Ratio (1.60-3.17); Alkaline Phosphatase 63 U/L (41-126); BUN/Creat Ratio 13.78 Ratio (12.00-20.00); Blood Urea Nitrogen 12.4 mg/dL (9.0-27.0); Calcium 9.4 mg/dL (8.7-10.3); Carbon Dioxide 23.3 mmol/L (21.6-31.8); Chloride 103 mmol/L (96-109); Chol/HDL Ratio 3.06 Ratio; Globulin 2.2 d/dL (1.6-3.3); Glucose 110 mg/dL (70-110); LDL Cholesterol,Calculated 89.5 mg/dL (0.0-131.0); Potassium 4.5 mmol/L (3.5-5.5); Sodium 137 mmol/L (135-145); Total Bilirubin 1.2 mg/dL (0.3-1.2); VLDL Calculation 16.78 mg/dL (5.00-40.00)
== END | disposition home or self-care (01) ==
LOC: LABWHC1 10:46
PROVIDERS: ATTEND Internal Medicine Interventional Cardiology
DX: Z12.5 Encounter for screening for malignant neoplasm of prostate (principal); I10 Essential (primary) hypertension; I25.9 Chronic ischemic heart disease, unspecified; E78.41 Elevated Lipoprotein(a); E04.9 Nontoxic goiter, unspecified; R30.0 Dysuria
CPT/HCPCS: 84439; 80061; 80053; 84443; 36415; G0103

== ENCOUNTER → 2023-03-20 | Outpatient (CLI) | payer MEDICARE ==
[2023-03-20 15:25] LABS: ALT 26 U/L (10-49); AST 18 U/L (14-35); Albumin 4.6 d/dL (3.8-4.9); Albumin/Globulin Ratio 2.09 Ratio (1.60-3.17); Alkaline Phosphatase 63 U/L (41-126); Blood Urea Nitrogen 11.3 mg/dL (9.0-27.0); Calcium 9.7 mg/dL (8.7-10.3); Carbon Dioxide 27.2 mmol/L (21.6-31.8); Chloride 103 mmol/L (96-109); Chol/HDL Ratio 2.58 Ratio; Globulin 2.2 d/dL (1.6-3.3); Glucose 123 mg/dL (70-110); LDL Cholesterol,Calculated 64.2 mg/dL (0.0-131.0); Potassium 4.4 mmol/L (3.5-5.5); Sodium 142 mmol/L (135-145); Total Bilirubin 1.2 mg/dL (0.3-1.2); Total Protein 6.8 d/dL (6.2-8.2); VLDL Calculation 15.96 mg/dL (5.00-40.00)
== END | disposition home or self-care (01) ==
LOC: LABWHC1 08:57
PROVIDERS: ATTEND Internal Medicine Interventional Cardiology
DX: I10 Essential (primary) hypertension (principal); E78.2 Mixed hyperlipidemia
CPT/HCPCS: 36415; 80053; 80061

== ENCOUNTER 2023-03-25 08:27 | Day surgery (SDC) | payer MEDICARE ==
[2023-03-22 13:17] VITALS: BMI 27.3
[~2023-03-25 08:27] MED LIST: ALPRAZolam 0.25 MG TAB PO PRN; ALPRAZolam 0.5 MG TAB PO PRN; ASPIRIN 325 MG TAB PO STA; ATORVASTATIN 80 MG TAB PO STA; HEPARIN SODIUM,PORCINE (1 ML) 2,500 UNIT in SODIUM CHLORIDE 0.9% 250 ML IRRIGATION PRN; HEPARIN SODIUM,PORCINE 10,000 UNIT in SODIUM CHLORIDE 0.9% 1,000 ML IRRIGATION PRN; NITROGLYCERIN SL TABS 0.4 MG TAB SUBLINGUAL PRN; SODIUM CHLORIDE 0.9% 1,000 ML in EMPTY BAG 1 BAG IV SCH
[2023-03-25 09:17] LABS: Basophils % (A) 1 %; Eosinophils # (A) 0.5 k/uL (0-0.7); Eosinophils % (A) 6 %; HCT 42.9 % (39.0-53.0); HGB 14.9 gm/dL (13.0-17.5); Lymphocytes # (A) 1.8 k/uL (1.0-4.8); Lymphocytes % (A) 21 %; MCH 29.6 pg (25.0-35.0); MCHC 34.7 g/dL (31.0-37.0); MCV 85.4 fL (80.0-100.0); Mean Platelet Volume 7.1; Monocytes # (A) 0.5 k/uL (0-1.0); Monocytes % (A) 6 %; Neutrophils # (A) 5.7 k/uL (1.3-7.7); Neutrophils % (A) 66 %; Platelet Count 298 k/uL (150-450); RBC 5.02 m/uL (4.30-5.90); RDW 13.2 % (11.5-15.5); WBC 8.7 k/uL (3.8-10.6)
[2023-03-25 09:28] VITALS: RESP 18; TEMP 97.7
[2023-03-25] MEDS ORDERED: HEPARIN SODIUM 1,000 UN/ML (10ML VL) ONE (09:51)
[2023-03-25] MEDS ORDERED: fentaNYL (PF) 50 MCG/ML 2 ML AMP ONE (09:51)
[2023-03-25] MEDS ORDERED: VERAPAMIL 2.5 MG/ML 2 ML AMP ONE (09:51)
[2023-03-25] MEDS ORDERED: fentaNYL (PF) 50 MCG/ML 2 ML AMP IVP ONE (09:57)
[2023-03-25] MEDS ORDERED: LIDOCAINE 1% INJ 10MG/ML (5 ML VIAL-PF) SQ ONE (10:01)
[2023-03-25] MEDS ORDERED: VERAPAMIL SYRINGE (5 MG/10 ML) INTRAARTER ONE (10:02)
[2023-03-25] MEDS ORDERED: HEPARIN SODIUM 1,000 UN/ML (10ML VL) IVP ONE (10:04)
[2023-03-25] MEDS ORDERED: IOPAMIDOL-370 100ML BTL INJ ONE (10:10)
[2023-03-25] MEDS ORDERED: RX INFO: IV CONTRAST WAS GIVEN 1 EACH MISC MISCELLANE PRN (10:21)
--- NOTE | 2023-03-25 10:27 | P.CARDCATH ---
Date of Procedure: 03/25/23 Description of Procedure: Cardiac Catheterization: The patient is a 68-year-old male with a known history of CAD, status post stenting of the RCA in 2013 who has been complaining of occasional chest discomfort and had an abnormal MPI. Recommendations were made regarding cardiac catheterization, the risks and the complications were discussed with the patient who is in full understanding and agreement. 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 Using Xylocaine Anesthesia and modified Seldinger technique, a 6-Panamanian sheath was introduced in the right radial artery . Subsequently, selective coronary angiography was performed using a 5-Panamanian 3.5 bend Ravi catheter. Multiple views of the coronary artery including hemiaxial views were obtained. The right Ravi catheter was used to cross the aortic valve and LVEDP was calculated. Following that, catheter and sheath were removed. Hemostasis was obtained with deployment of vascular band . There was no immediate complication. Patient was returned to room in stable condition. Of note, the patient received a total of 4500 units of intravenous heparin as well as intra-arterial verapamil. Findings: Left main: This is about size vessel, bifurcating into LAD and left circumflex, left main has no obstructive disease LAD: This is a large-size vessel, reaching to the apex, giving rise to 2 diagonal branch is again one is large in caliber the proximal LAD has a 20-30% eccentric lesion. The takeoff of the first atrial branch is a 70-80% stenosis, it is of small caliber, the rest of the vessel has no high-grade stenosis Left circumflex: This is a large nondominant vessel, giving rise to a large obtuse marginal branch. The proximal left circumflex has 20-30% plaque with no high-grade stenosis. RCA: This is a large-size vessel, bifurcating into PDA and PLV, dominant. The mid RCA stented segment is patent. There is mild plaque proximal to the stent of about 20%. Left Ventriculogram: Not performed Hemodynamics: There was no gradient across the aortic valve, LVEDP was 12-16 mmHg Conclusion: 1. Mild triple-vessel disease 2. Patent stent in the RCA 3. Right dominance Recommendations: I see no evidence of significant progression of disease, I'll continue medical therapy with the aggressive coronary risks modifications that have been initiated. The findings and the recommendations were discussed with the patient and the family and they were in full understanding and agreement. Duration of sedation is 13 minutes.
[2023-03-25] MEDS ORDERED: SODIUM CHLORIDE 0.9% 1,000 ML IV SCH (10:30)
[2023-03-25 15:12] VITALS: BP 152/78; PULSE 60
--- NOTE | 2023-03-25 15:27 | CT ---
EXAMINATION TYPE: CT brain wo con CT DLP: 1029.90 mGycm, Automated exposure control for dose reduction was used. DATE OF EXAM: 03/25/2023 3:20 PM COMPARISON: None. Prior CT Brain from . CLINICAL INDICATION:Male, 68 years old with history of C/O DOUBLE VISION, C/O DOUBLE VISION TECHNIQUE: Brain: Multiple axial CT images of the brain were obtained without IV contrast. FINDINGS: Brain: Extra-axial spaces: No abnormal extra-axial fluid collections. Ventricular system: Within normal limits Cerebral parenchyma: No acute intraparenchymal hemorrhage or mass effect. The marshall-white junction is well differentiated. Scattered hypoattenuating areas are seen within the white matter. Cerebellum: Unremarkable. Mass effect: No evidence of midline shift. Intracranial vasculature: Atherosclerotic calcifications of the intracranial vessels. Soft tissues: Normal. Calvarium/osseous structures: No depressed skull fracture. Paranasal sinuses and mastoid air cells: Moderate scattered paranasal sinus disease. Mastoid air cell s are clear. Visualized orbits: Bilateral aphakia IMPRESSION: 1. No acute intracranial process. 2. Nonspecific white matter changes, likely secondary to chronic small vessel ischemic disease. 3. Paranasal sinus disease.
[2023-03-25] MEDS ORDERED: NON FORMULARY DRUG (Metoprolol Tartrate [Lopressor] 100 MG Tablet) PO SCH (21:00)
[2023-03-26] MEDS ORDERED: NON FORMULARY DRUG (Omeprazole [Omeprazole] 20 MG Tablet.Dr) PO SCH (09:00)
[2023-03-26] MEDS ORDERED: lisinopriL 5 MG TAB PO SCH (09:00)
[2023-03-26] MEDS ORDERED: ASPIRIN 81 MG PO SCH (09:00)
[2023-03-26] MEDS ORDERED: amLODIPine 5 MG TAB PO SCH (09:00)
[2023-03-26] MEDS ORDERED: NON FORMULARY DRUG (Rosuvastatin 10 MG Tablet) PO SCH (09:00)
== END 2023-03-25 15:42 | disposition home or self-care (01) ==
LOC: CATHCVL 08:27
PROVIDERS: ATTEND Internal Medicine Interventional Cardiology
DX: I25.10 Atherosclerotic heart disease of native coronary artery without angina pectoris (principal); I10 Essential (primary) hypertension; E78.5 Hyperlipidemia, unspecified; G47.30 Sleep apnea, unspecified; Z85.828 Personal history of other malignant neoplasm of skin; Z79.82 Long term (current) use of aspirin; Z95.5 Presence of coronary angioplasty implant and graft; Z87.891 Personal history of nicotine dependence; Z79.899 Other long term (current) drug therapy
CPT/HCPCS: 93458; 85025; 70450; 99152; C1769 ×2; C1894; J2001; J3010; J1644; Q9967

== ENCOUNTER 2023-03-26 10:33 | Observation (INO) | payer MEDICARE ==
--- NOTE | 2023-03-26 11:09 | ED ---
Eye Problem HPI <Efrain Velez - Last Filed: 03/26/23 15:20> - General Source: patient, family, RN notes reviewed Mode of arrival: ambulatory Limitations: no limitations - History of Present Illness chief complaint: vision change <Mae Espinoza - Last Filed: 03/26/23 18:00> - General Chief complaint: Recheck/Abnormal Lab/Rx Stated complaint: Vision Issues, Heart Cath yesterday Time Seen by Provider: 03/26/23 10:43 - History of Present Illness Initial comments: This is a 68-year-old male who presents to the emergency department for visual problems. Patient had a cardiac catheterization yesterday, and when he woke up, he started to experience double vision. Symptoms have since persisted. Denies any actual vision loss. This was not his first cardiac catheterization. States that the symptoms are not as severe up close, and much worse when far away. Additionally, states that if he covers one eye this does not happen, it is only when both eyes are open and being used together. Denies any history of strokes or similar symptoms in the past. Denies any pain associated with this. His family is worried about a TIA. His states that when he walks he seems to be veering more towards the right as well. He did have a computed tomography s can done yesterday, which was found to be normal. 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 (Mae Espinoza) - Related Data Home Medications Medication Instructions Recorded Confirmed Cholecalciferol [Vitamin D3 (25 50 mcg PO DAILY 03/18/20 03/26/23 Mcg = 1000 Iu)] Metoprolol Tartrate [Lopressor] 100 mg PO BID 03/18/20 03/26/23 Multivitamins, Thera [Multivitamin 1 tab PO DAILY 03/18/20 03/26/23 (formulary)] Omeprazole 20 mg PO DAILY 03/18/20 03/26/23 Aspirin 81 mg PO DAILY 02/12/22 03/26/23 Rosuvastatin [Crestor] 10 mg PO HS 02/12/22 03/26/23 Ubidecarenone [Coenzyme Q10] 100 mg PO DAILY 03/22/23 03/26/23 amLODIPine [Norvasc] 5 mg PO DAILY 03/22/23 03/26/23 lisinopriL [Zestril] 5 mg PO DAILY 03/22/23 03/26/23 Allergies Allergy/AdvReac Type Severity Reaction Status Date / Time No Known Allergies Allergy Verified 03/26/23 13:24 Review of Systems ROS Other: All systems not noted in ROS Statement are negative. <Efrain Velez - Last Filed: 03/26/23 15:20> ROS Other: All systems not noted in ROS Statement are negative. <Mae Espinoza - Last Filed: 03/26/23 18:00> ROS Statement: Those systems with pertinent positive or pertinent negative responses have been documented in the HPI. Past Medical History Past Medical History: Coronary Artery Disease (CAD), Cancer, Diabetes Mellitus, Hearing Disorder / Deafness, Hypertension Additional Past Medical History / Comment(s): Right ear deafness, melanoma, no diabetic medications at this time History of Any Multi-Drug Resistant Organisms: None Reported Past Surgical History: Heart Catheterization With Stent, Tonsillectomy Additional Past Surgical History / Comment(s): melanoma removal, right thyroidectomy due to nodules Past Anesthesia/Blood Transfusion Reactions: No Reported Reaction Date of Last Stent Placement:: 2012 Past Psychological History: No Psychological Hx Reported Smoking Status: Former smoker Past Alcohol Use History: None Reported Past Drug Use History: None Reported <Mae Espinoza - Last Filed: 03/26/23 18:00> General Exam Limitations: no limitations General appearance: alert, in no apparent distress Head exam: Present: atraumatic, normocephalic, normal inspection Eye exam: Present: normal appearance, PERRL, EOMI. Absent: scleral icterus, conjunctival injection, periorbital swelling Respiratory exam: Present: normal lung sounds bilaterally. Absent: respiratory distress, wheezes, rales, rhonchi, stridor Cardiovascular Exam: Present: regular rate, normal rhythm, normal heart sounds. Absent: systolic murmur, diastolic murmur, rubs, gallop, clicks Neurological exam: Present: alert, oriented X3, CN II-XII intact Expanded Upper motor neuron: Christopher Neglect: Normal, Pronator Drift: Normal Motor strength exam: RUE: 5, LUE: 5, RLE: 5, LLE: 5 Psychiatric exam: Present: normal affect, normal mood Skin exam: Present: warm, dry, intact, normal color. Absent: rash <Mae Espinoza - Last Filed: 03/26/23 18:00> Course Vital Signs 03/26/23 03/26/23 03/26/23 10:35 11:37 12:53 Temperature 98.4 F Pulse Rate 85 67 67 Respiratory 20 18 18 Rate Blood Pressure 166/86 154/93 149/84 O2 Sat by Pulse 97 98 96 Oximetry 03/26/23 03/26/23 13:00 16:47 Temperature Pulse Rate 65 66 Respiratory 18 18 Rate Blood Pressure 147/85 155/84 O2 Sat by Pulse 97 98 Oximetry Medical Decision Making - Lab Data Result diagrams: 03/26/23 11:34 03/26/23 12:08 <Efrain Velez - Last Filed: 03/26/23 15:20> - Lab Data Result diagrams: 03/26/23 11:34 03/26/23 12:08 - Radiology Data Radiology results: report reviewed, image reviewed <Mae Espinoza - Last Filed: 03/26/23 18:00> - Medical Decision Making This is a 68-year-old male who presents to the emergency department for visual changes. Was pt. sent in by a medical professional or institution? @ -No Did you speak to anyone other than the patient for history? @ -No Did you review nursing and triage notes? @ -Yes, and I agree, it is accurate with regards to the patient's symptoms. Were old charts reviewed? @ -Yes, CT scan of the brain obtained yesterday revealing no acute findings. Differential Diagnosis? @ -Differential Visual Changes: TIA/CVA, glaucoma, optic neuritis, conjunctivitis, orbital cellulitis, this is n ot meant to be an all-inclusive list. EKG interpreted by me (3pts min.)? @ -EKG interpreted by me demonstrating the following: Sinus rhythm. Ventricular rate 68 beats per minute, AL interval 193 ms, QRS duration 101 ms, QTC 394 ms. X-rays interpreted by me (1pt min.)? @ -Not obtained CT interpreted by me (1pt min.)? @ -CT angiogram of the head and neck obtained. My interpretation identifies no evidence of an arterial occlusion or aneurysm. CT brain without contrast obtained as well. My interpretation of that identifies no evidence of an acute intracranial hemorrhage. U/S interpreted by me (1pt. min.)? @ -Not obtained What testing was considered but not performed? (CT, X-rays, U/S, labs)? Why? @ -None What meds were considered but not given? Why? @ -None Did you discuss the management of the patient with other professionals? @ -Yes, Dr. Miguel, who accepts the patient for admission. Did you reconcile home meds? @ -Yes Was smoking cessation discussed for >3mins.? @ -No Was critical care preformed (if so, how long)? @ -No Were there social determinants of health that impacted care today? How? (Homelessness, low income, unemployed, alcoholism, drug addiction, transportation, low edu. Level, literacy, decrease access to med. care, [facility], rehab)? @ -No Was there de-escalation of care discussed even if they declined? (Discuss DNR or withdrawal of care, Hospice)? @ -No What co-morbidities impacted this encounter? (DM, HTN, Smoking, COPD, CAD, Cancer, CVA, Hep., AIDS, mental health diagnosis, sleep apnea, morbid obesity)? @ -CAD, DM, HTN Was patient admitted / discharged? @ -Admitted. Lab work obtained and found to be unremarkable. CT angiogram of the head and neck as well as computed tomography scan of the brain without contrast obtained revealing no acute process. Given that the patient continued to remain asymptomatic, and in light of the recent procedure, patient admitted to medicine for further evaluation with neurology consult. Undiagnosed new problem with uncertain prognosis? @ -None Drug Therapy requiring intensive monitoring for toxicity (Heparin, Nitro, Insulin, Cardizem)? @ -None Were any procedures done? @ -None Diagnosis/symptom? @ -Diplopia, s/p cardiac cath Acute, or Chronic, or Acute on Chronic? @ -Acute Uncomplicated (without systemic symptoms) or Complicated (systemic symptoms)? @ -Uncomplicated Side effects of treatment? @ -None Exacerbation, Progression, or Severe Exacerbation] @ -Not applicable Poses a threat to life or bodily function? @ -Yes This case was discussed in detail with the attending ED physician, Dr. Velez. Presentation, findings, and treatment plan discussed in detail as well. (Mae Espinoza) - Lab Data Lab Results 03/26/23 03/26/23 03/26/23 Range/Units 11:34 11:34 12:08 WBC 7.8 (3.8-10.6) k/uL RBC 5.26 (4.30-5.90) m/uL Hgb 15.6 (13.0-17.5) gm/dL Hct 45.4 (39.0-53.0) % MCV 86.3 (80.0-100.0) fL MCH 29.7 (25.0-35.0) pg MCHC 34.4 (31.0-37.0) g/dL RDW 13.0 (11.5-15.5) % Plt Count 293 (150-450) k/uL MPV 7.3 Neutrophils % 67 % Lymphocytes % 19 % Monocytes % 6 % Eosinophils % 5 % Basophils % 1 % Neutrophils # 5.2 (1.3-7.7) k/uL Lymphocytes # 1.5 (1.0-4.8) k/uL Monocytes # 0.5 (0-1.0) k/uL Eosinophils # 0.4 (0-0.7) k/uL Basophils # 0.0 (0-0.2) k/uL ESR 13 (0-20) mm/Hr PT 10.7 (10.0-12.5) sec INR 1.0 (<1.2) APTT 23.3 (22.0-30.0) sec Sodium 138 (137-145) mmol/L Potassium 5.5 H (3.5-5.1) mmol/L Chloride 108 H (98-107) mmol/L Carbon Dioxide 22 (22-30) mmol/L Anion Gap 8 mmol/L BUN 13 (9-20) mg/dL Creatinine 0.62 L (0.66-1.25) mg/dL Est GFR (CKD-EPI)AfAm >90 (>60 ml/min/1.73 sqM) Est GFR (CKD-EPI)NonAf >90 (>60 ml/min/1.73 sqM) Glucose 124 H (74-99) mg/dL Calcium 9.2 (8.4-10.2) mg/dL Total Bilirubin 1.5 H (0.2-1.3) mg/dL AST 39 (17-59) U/L ALT 32 (4-49) U/L Alkaline Phosphatase 47 (38-126) U/L C-Reactive Protein <0.5 (<1.0) mg/dL Total Protein 7.2 (6.3-8.2) g/dL Albumin 4.4 (3.5-5.0) g/dL Disposition <Efrain Velez - Last Filed: 03/26/23 15:20> <Mae Espinoza - Last Filed: 03/26/23 18:00> Clinical Impression: Diplopia, S/P cardiac cath Disposition: ADMITTED IP TO THIS HOSP
[2023-03-26 11:59] LABS: Basophils % (A) 1 %; Eosinophils # (A) 0.4 k/uL (0-0.7); Eosinophils % (A) 5 %; HCT 45.4 % (39.0-53.0); HGB 15.6 gm/dL (13.0-17.5); Lymphocytes # (A) 1.5 k/uL (1.0-4.8); Lymphocytes % (A) 19 %; MCH 29.7 pg (25.0-35.0); MCHC 34.4 g/dL (31.0-37.0); MCV 86.3 fL (80.0-100.0); Mean Platelet Volume 7.3; Monocytes # (A) 0.5 k/uL (0-1.0); Monocytes % (A) 6 %; Neutrophils # (A) 5.2 k/uL (1.3-7.7); Neutrophils % (A) 67 %; Platelet Count 293 k/uL (150-450); RBC 5.26 m/uL (4.30-5.90); WBC 7.8 k/uL (3.8-10.6)
[2023-03-26 12:04] LABS: Partial Thromboplastin Time 23.3 sec (22.0-30.0); Prothrombin Time 10.7 sec (10.0-12.5)
[2023-03-26 12:32] LABS: ALT 32 U/L (4-49); AST 39 U/L (17-59); African American GFR (CKD) >90 (>60 ml/min/1.73 sqM); Albumin 4.4 g/dL (3.5-5.0); Alkaline Phosphatase 47 U/L (38-126); Anion Gap 8 mmol/L; Blood Urea Nitrogen 13 mg/dL (9-20); C Reactive Protein <0.5 mg/dL (<1.0); Calcium 9.2 mg/dL (8.4-10.2); Carbon Dioxide 22 mmol/L (22-30); Chloride 108 mmol/L (98-107); Glucose 124 mg/dL (74-99); Non-African American GFR(CKD) >90 (>60 ml/min/1.73 sqM); Sodium 138 mmol/L (137-145); Total Bilirubin 1.5 mg/dL (0.2-1.3); Total Protein 7.2 g/dL (6.3-8.2)
[2023-03-26 12:58] LABS: Potassium 5.5 mmol/L (3.5-5.1)
--- NOTE | 2023-03-26 14:25 | CT ---
EXAMINATION TYPE: CT angio head neck DATE OF EXAM: 03/26/2023 COMPARISON: CT brain same day HISTORY: 68-year-old male with visual changes, double vision, heart cath yesterday TECHNIQUE: Contiguous axial scanning of the head and neck performed with IV Contrast, patient injecte d with 65 mL of Isovue 370. Coronal/sagittal reconstructions performed. 3-D reconstructions generated on a dedicated independent workstation. CT DLP: 527.1 mGycm Automated exposure control for dose reduction was used. 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 Conventional arterial vessel branching anatomy. Dominant right vertebral artery. Both vertebral arteries are otherwise patent throughout their course . The right common and right internal carotid arteries are patent. Tortuous upper right cervical ICA. The left common carotid artery is patent. Mild atherosclerotic calcifications at the left carotid bifurcation without any significant left ICA narrowing. NASCET criteria was utilized. HEAD: Right vertebral artery is dominant. The left vertebral artery becomes even more hypoplastic after the PICA takeoff. There is diffusely small caliber to the vertebral and basilar arteries which are other dumont patent. The small bowel caliber appears to be on a congenital basis. There are prominent contributions from the bilateral posterior communicating arteries with hypoplasti c P1 segments, particularly on the right. Posterior circulation otherwise patent There is segmental mild atherosclerotic narrowing within the bilateral carotid siphons without signif icant stenosis. The tear circulation is patent. No aneurysmal changes seen. Dural venous sinuses are patent. IMPRESSION: NECK: 1. MILD ATHEROSCLEROTIC CHANGES AT THE LEFT CAROTID BIFURCATION. NO HEMODYNAMICALLY SIGNIFICANT ICA S TENOSIS ON EITHER SIDE. 2. SLIGHTLY DOMINANT RIGHT VERTEBRAL ARTERY. HEAD: 3. DIFFUSELY SMALL CALIBER TO THE VERTEBRAL AND BASILAR ARTERIES LIKELY ON A CONGENITAL BASIS. CORREL ATE FOR ANY CHRONIC SYMPTOMS OF VERTEBROBASILAR INSUFFICIENCY. 4. NO LARGE VESSEL INTRACRANIAL ARTERIAL OCCLUSION, SIGNIFICANT STENOSIS, OR ANEURYSMAL CHANGE IS SEE N.
--- NOTE | 2023-03-26 14:50 | CT ---
EXAMINATION TYPE: CT brain wo con DATE OF EXAM: 03/26/2023 COMPARISON: 03/25/2000 HISTORY: double vision, heart cath yesterday CT DLP: 1080 mGycm Automated exposure control for dose reduction was used. FINDINGS: Mild generalized degenerative change. No evidence of acute intracranial hemorrhage or mass effect. Fa int hypoattenuation within the white matter compatible with remote microvascular ischemia. Orbits are symmetric. Nasal septal deviation. Changes of chronic sinusitis. Hyperdensity within the s inus changes could represent fungal disease or hemorrhagic component. There is a soft tissue subcutan eous 5 mm nodule inferior to the left orbit which has fat attenuation and may represent a small dermo id or lipoma. Calvarium is intact. Craniocervical junction maintained. Sella turcica and normal. Intracranial ather osclerotic changes stable. IMPRESSION: 1. STABLE DEGENERATIVE AND SUSPECTED REMOTE ISCHEMIC WHITE MATTER CHANGE. IF THERE IS CLINICAL SUSPIC ION FOR ACUTE ISCHEMIA CORRELATE WITH MRI CLINICALLY WARRANTED. 2. EXTENSIVE CHANGES OF CHRONIC SINUSITIS.
[2023-03-26] MEDS ORDERED: NALOXONE 0.4 MG/ML 1 ML VIAL IV PRN (15:11)
[2023-03-26] MEDS ORDERED: HYDROcodone/APAP 5-325MG 1 EACH TAB PO PRN (15:11)
[2023-03-26] MEDS ORDERED: ACETAMINOPHEN TAB 325 MG TAB PO PRN (15:11)
[2023-03-26] MEDS ORDERED: ONDANSETRON 4 MG/2 ML VIAL IVP PRN (15:11)
[2023-03-26 16:14] LABS: Erythrocyte Sedimentation Rate 13 mm/Hr (0-20)
[2023-03-26] MEDS: CLOPIDOGREL 75 MG TAB PO SCH (18:38)
[2023-03-26] MEDS: METOPROLOL TARTRATE 50 MG TAB PO SCH (19:58)
[2023-03-26] MEDS ORDERED: ATORVASTATIN 20 MG TAB PO SCH (21:00)
--- NOTE | 2023-03-26 23:05 | P.HPIM ---
History of Present Illness H&P Date: 03/26/23 Chief Complaint: Double vision Patient is a 68-year-old male with a past medical history of coronary disease and prior stent placement in 2013, hypertension, diabetes type 2 diet- controlled, hearing disorder/deaf and prior history of smoking. Patient had cardiac catheterization done yesterday due to recent abnormal stress test which showed mild triple-vessel disease. Patent stent in the RCA. No evidence of significant progression of disease. Recommended medical management as per cardiology. When he woke up from the procedure he started having double vision. His noticed that his right eye is drifting laterally. Patient states that symptoms are not severe when he is looking closely but worse when faraway. Otherwise denies any headache or eye pain. Patient is having persistent symptoms which made him come to ER. Denies any chest pain or palpitations. No shortness of breath. No fever or chills. CT of the brain showed stable degenerative and suspected remote ischemic white matter changes. If there is clinical suspicion for acute ischemia correlate with MRI as clinically warranted. Extensive changes of chronic sinusitis. CT angiogram of the head and neck showed mild atherosclerotic changes at the left carotid bifurcation. No hemodynamically significant ICA stenosis on either side. Diffuse small caliber to the vertebral and basilar arteries likely unable congenital basis. No large vessel intracranial arterial occlusion, significant stenosis or aneurysmal changes seen. EKG showed sinus rhythm Blood pressure 166 over 86 mmHg on admission laboratory data showed WBC 7.8 hemoglobin 15.6 and platelets 293 Sodium 138, chloride 108 and potassium 5.5 which is hemolyzed, BUN 13 and creatinine 0.62 and blood sugar is 124. Total bilirubin level is 1.5. CRP less than 0.5 and albumin 4.4 and liver enzymes are not elevated. Review of Systems Constitutional: Patient denies any fever or chills . no Generalized weakness. Abdomen: Patient denied any nausea or vomiting or abd. pain Cardiovascular: Patient denies any chest pain or short of breath no palpitations. Respiratory: patient denied any cough . no sputum production. No shortness of breath Neurologic: Patient denied any numbness or tingling headache.Double vision with both eyes open. Musculoskeletal: Patient denies any complaints of joint swelling or deformity. Skin: Negative Psychiatric: Negative Endocrine: No heat or cold intolerance. No recent weight gain. Genitourinary: No dysuria or hematuria. All other 14 point ROS negative except the above Past Medical History Past Medical History: Coronary Artery Disease (CAD), Cancer, Diabetes Mellitus, Hearing Disorder / Deafness, Hypertension Additional Past Medical History / Comment(s): Right ear deafness, melanoma, no diabetic medications at this time History of Any Multi-Drug Resistant Organisms: None Reported Past Surgical History: Heart Catheterization With Stent, Tonsillectomy Additional Past Surgical History / Comment(s): melanoma removal, right t hyroidectomy due to nodules Past Anesthesia/Blood Transfusion Reactions: No Reported Reaction Date of Last Stent Placement:: 2012 Past Psychological History: No Psychological Hx Reported Smoking Status: Former smoker Past Alcohol Use History: None Reported Past Drug Use History: None Reported Medications and Allergies Home Medications Medication Instructions Recorded Confirmed Type Cholecalciferol [Vitamin D3 (25 50 mcg PO DAILY 03/18/20 03/26/23 History Mcg = 1000 Iu)] Metoprolol Tartrate [Lopressor] 100 mg PO BID 03/18/20 03/26/23 History Multivitamins, Thera [Multivitamin 1 tab PO DAILY 03/18/20 03/26/23 History (formulary)] Omeprazole 20 mg PO DAILY 03/18/20 03/26/23 History Aspirin 81 mg PO DAILY 02/12/22 03/26/23 History Rosuvastatin [Crestor] 10 mg PO HS 02/12/22 03/26/23 History Ubidecarenone [Coenzyme Q10] 100 mg PO DAILY 03/22/23 03/26/23 History amLODIPine [Norvasc] 5 mg PO DAILY 03/22/23 03/26/23 History lisinopriL [Zestril] 5 mg PO DAILY 03/22/23 03/26/23 History Allergies Allergy/AdvReac Type Severity Reaction Status Date / Time No Known Allergies Allergy Verified 03/26/23 13:24 Physical Exam Vitals: Vital Signs Temp Pulse Pulse Resp BP BP Pulse Ox 03/26/23 16:47 66 18 155/84 98 03/26/23 15:30 97.5 F L 72 16 167/87 100 03/26/23 13:00 65 18 147/85 97 03/26/23 12:53 67 18 149/84 96 03/26/23 11:37 67 18 154/93 98 03/26/23 10:35 98.4 F 85 20 166/86 97 Intake and Output 03/26/23 03/26/23 03/26/23 06:59 14:59 22:59 Other: Weight 82.554 kg 82.554 kg PHYSICAL EXAMINATION: Patient is lying in the bed comfortably, no acute distress, awake alert and oriented.. HEENT: Normocephalic. Neck is supple. Pupils reactive. Nostrils clear. Oral cavity is moist. Neck reveals no JVD, carotid bruits, or thyromegaly. CHEST EXAMINATION: Trachea is central. Symmetrical expansion. Lung drew clear to auscultation and percussion. CARDIAC: Normal S1, S2 with no gallops. No murmurs ABDOMEN: Soft. Bowel sounds present. Nontender. No organomegaly. No abdominal bruits. Extremities: reveal no edema. No clubbing or cyanosis Neurologically awake, alert, oriented x3 with well-coordinated movements. Diplopia with both eyes open. Muscle strength 5 out of 5 in all 4 extremities. Skin: No rash or skin lesions. Psychiatric: Coperative. Nonsuicidal, Musculoskeletal: No joint swelling or deformity. Normal range of motion. Results CBC & Chem 7: 03/26/23 11:34 03/26/23 12:08 Labs: Abnormal Lab Results - Last 24 Hours (Table) 03/26/23 Range/Units 12:08 Potassium 5.5 H (3.5-5.1) mmol/L Chloride 108 H (98-107) mmol/L Creatinine 0.62 L (0.66-1.25) mg/dL Glucose 124 H (74-99) mg/dL Total Bilirubin 1.5 H (0.2-1.3) mg/dL Thrombosis Risk Factor Assmnt - DVT/VTE Prophylaxis DVT/VTE Prophylaxis: Pharmacologic Prophylaxis ordered - Choose All That Apply Any of the Below Risk Factors Present?: No Each Risk Factor Represents 2 Points: Age 61-74 years Other congenital or acquired thrombophilia - If yes, enter type in comment: No Thrombosis Risk Factor Assessment Total Risk Factor Score: 2 Thrombosis Risk Factor Assessment Level: Low Risk Assessment and Plan Assessment: Diplopia with drifting of right bilaterally. Possible TIA versus acute ischemic stroke. Improving symptomatically. Status postcardiac catheterization on 03/25/2023 showing mild multivessel disease. History of CVA with prior stent placement to RCA in 2013 Mild hyperglycemia Hypertension uncontrolled on admission Hearing disorder/deafness Prior history of smoking DVT prophylaxis with heparin subcu Plan: Patient will be continued on telemetry monitoring. Continue with aspirin and statins. Continue with neurochecks. CT head and CTA head and neck reports reviewed. Follow-up A1c level. Neurology was consulted for further evaluation. Repeat BMP. Potassium level was 5.5 which is hemolyzed sample. Current with home medications and follow-up closely. Discussed with the patient and his at bedside in detail. Time with Patient: Greater than 30
[2023-03-27 07:15] LABS: Basophils % (A) 1 %; Eosinophils # (A) 0.4 k/uL (0-0.7); Eosinophils % (A) 6 %; HCT 42.8 % (39.0-53.0); HGB 14.4 gm/dL (13.0-17.5); Lymphocytes # (A) 2.1 k/uL (1.0-4.8); Lymphocytes % (A) 32 %; MCH 29.3 pg (25.0-35.0); MCHC 33.7 g/dL (31.0-37.0); MCV 86.8 fL (80.0-100.0); Monocytes # (A) 0.4 k/uL (0-1.0); Monocytes % (A) 6 %; Neutrophils # (A) 3.5 k/uL (1.3-7.7); Neutrophils % (A) 54 %; Platelet Count 277 k/uL (150-450); RBC 4.93 m/uL (4.30-5.90); RDW 13.1 % (11.5-15.5); WBC 6.5 k/uL (3.8-10.6)
[2023-03-27 07:20] LABS: ALT 29 U/L (4-49); AST 25 U/L (17-59); African American GFR (CKD) >90 (>60 ml/min/1.73 sqM); Albumin 3.9 g/dL (3.5-5.0); Alkaline Phosphatase 55 U/L (38-126); Anion Gap 9 mmol/L; Blood Urea Nitrogen 15 mg/dL (9-20); Calcium 9.1 mg/dL (8.4-10.2); Carbon Dioxide 24 mmol/L (22-30); Chloride 106 mmol/L (98-107); Glucose 109 mg/dL (74-99); Non-African American GFR(CKD) 88 (>60 ml/min/1.73 sqM); Potassium 4.2 mmol/L (3.5-5.1); Sodium 139 mmol/L (137-145); Total Bilirubin 1.3 mg/dL (0.2-1.3); Total Protein 6.5 g/dL (6.3-8.2)
[2023-03-27] MEDS ORDERED: PANTOPRAZOLE 40 MG TABLET PO SCH (07:30)
--- NOTE | 2023-03-27 07:43 | P.CNNES ---
History of Present Illness Consult date: 03/26/23 Requesting physician: Mae Espinoza Reason for Consult: Diplopia, status post cardiac cath yesterday History of Present Illness: Patient is a 68-year-old right-handed male who underwent cardiac catheterization yesterday at 10:30 AM, which was performed for abnormal stress test and some chest pain. The cardiac catheterization did not reveal any significant abnormality, did not require any intervention. He does have left bundle branch block. Patient states that shortly after cardiac catheterization, patient notic ed double vision. He was otherwise stable with no other deficits and was sent home. Patient's noticed that his right eye turned outwards yesterday. When he was walking, he was listing to the right side. He was slightly unsteady with his gait all day yesterday. There was no slurred speech, facial droop, loss of vision, focal numbness, tingling or weakness. This morning he woke up and his symptoms were persistent as above, therefore they decided to come to the ER and arrived at 10:33 AM. Vital signs on arrival blood pressure 166/86, pulse rate 85, temperature 98.4. Patient's blood tests shows normal CBC, PT/PTT, sodium is normal, potassium 5.5, renal functions, hepatic panel is normal. CRP negative. Computed tomography scan of head revealed stable degenerative and suspected remote ischemic white matter change. If there is clinical suspicion for acute ischemia, correlate wit h MRI as clinically warranted. Extensive changes of chronic sinusitis. I personally reviewed CT head, agree with the findings. There is complete opacification of the right frontal sinus, dependent mucus and bilateral maxillary sinuses, opacification of some ethmoid air cells. Sphenoid sinuses ar e clear. EAC is clear. Patient does have history of hypertension, CAD, pre-diabetes, hearing disorder, hypertension. Patient has history of cardiac stenting in 2013. He has history of smoking 1 pack per day for 20 years, quit 30 years ago. Denies any alcohol use. No previous history of stroke or TIA. Review of Systems Constitutional: Denies chills, Denies fever Eyes: bilateral diplopia, denies blurred vision, denies loss of vision Ears: right: decreased hearing (Chronic), deny: ear discharge Ears, nose, mouth and throat: Denies headache, Denies sore throat Cardiovascular: Reports chest pain, Denies shortness of breath Respiratory: Denies cough, Denies excessive sputum Gastrointestinal: Denies abdominal pain, Denies diarrhea, Denies nausea, Denies vomiting Genitourinary: Denies incontinence, Denies urinary frequency Musculoskeletal: Denies low back pain, Denies myalgias, Denies neck pain Integumentary: Denies pruritus, Denies rash Neurological: Reports as per HPI, Denies numbness, Denies weakness Psychiatric: Reports anxiety, Denies depression Endocrine: Denies fatigue, Denies weight change Hematologic/Lymphatic: Denies easy bleeding, Denies easy bruising Past Medical History Past Medical History: Coronary Artery Disease (CAD), Cancer, Diabetes Mellitus, Hearing Disorder / Deafness, Hypertension Additional Past Medical History / Comment(s): Right ear deafness, melanoma, no diabetic medications at this time History of Any Multi-Drug Resistant Organisms: None Reported Past Surgical History: Heart Catheterization With Stent, Tonsillectomy Additional Past Surgical History / Comment(s): melanoma removal, right thyroidectomy due to nodules Past Anesthesia/Blood Transfusion Reactions: No Reported Reaction Date of Last Stent Placement:: 2012 Past Psychological History: No Psychological Hx Reported Smoking Status: Former smoker Past Alcohol Use History: None Reported Past Drug Use History: None Reported Medications and Allergies Home Medications Medication Instructions Recorded Confirmed Type Cholecalciferol [Vitamin D3 (25 50 mcg PO DAILY 03/18/20 03/26/23 History Mcg = 1000 Iu)] Metoprolol Tartrate [Lopressor] 100 mg PO BID 03/18/20 03/26/23 History Multivitamins, Thera [Multivitamin 1 tab PO DAILY 03/18/20 03/26/23 History (formulary)] Omeprazole 20 mg PO DAILY 03/18/20 03/26/23 History Aspirin 81 mg PO DAILY 02/12/22 03/26/23 History Rosuvastatin [Crestor] 10 mg PO HS 02/12/22 03/26/23 History Ubidecarenone [Coenzyme Q10] 100 mg PO DAILY 03/22/23 03/26/23 History amLODIPine [Norvasc] 5 mg PO DAILY 03/22/23 03/26/23 History lisinopriL [Zestril] 5 mg PO DAILY 03/22/23 03/26/23 History Allergies Allergy/AdvReac Type Severity Reaction Status Date / Time No Known Allergies Allergy Verified 03/26/23 13:24 Physical Examination - Vital Signs Vital Signs: Vital Signs Temp Pulse Resp BP Pulse Ox 03/26/23 16:47 66 18 155/84 98 03/26/23 13:00 65 18 147/85 97 03/26/23 12:53 67 18 149/84 96 03/26/23 11:37 67 18 154/93 98 03/26/23 10:35 98.4 F 85 20 166/86 97 Intake and Output 03/26/23 03/26/23 03/26/23 06:59 14:59 22:59 Other: Weight 82.554 kg Patient is a young-looking elderly male, in no acute distress. Patient is alert awake oriented to time place and person. Speech and language functions are normal. Patient can name and repeat very well. No aphasia or dysarthria. Attention, concentration and fund of knowledge is adequate. On cranial nerve examination, pupils are equal, round and reacting to light, visual drew are full on confrontation, with no neglect on double simultaneous stimulation. Extraocular muscles are intact with no nystagmus. He does have frequent horizontal diplopia looking to the extreme right gaze. No obvious extraocular muscles weakness was noted. Face is symmetric, tongue protrudes to the midline. Palatal elevation and sensation normal, hearing is decreased for finger rubbing and shoulder shrug normal, facial sensation normal. On muscle strength testing, there is no pronator drift and the strength is normal in arms and legs distally and proximally. Deep tendon reflexes are symmetric 1 at the biceps, 1 brachioradialis, 2 at the knees and ankles and plantars downgoing bilaterally. Sensory to touch is equal with no neglect on double simultaneous stimulation. Cerebellar function showed tremulousness for [id number] testing bilaterally but no ataxia. Patient has slight ataxia for [id number] testing bilaterally. Tone and bulk of muscles normal. Gait deferred.. On general examination, there is no carotid bruit or murmur, S1-S2 audible. Chest is clear on consultation. Abdomen is soft nontender. No organomegaly, bowel sounds present. Peripheral pulses are present. No peripheral edema. Results - Laboratory Findings CBC and BMP: 03/27/23 06:30 03/27/23 06:30 Abnormal Lab Findings: Abnormal Labs 03/26/23 12:08 Potassium 5.5 H Chloride 108 H Creatinine 0.62 L Glucose 124 H Total Bilirubin 1.5 H Assessment and Plan Assessment: * New onset horizontal diplopia, mainly looking to the right side, and gait ataxia postcardiac cath. Rule out stroke/TIA. Computed tomography scan also revealed evidence of significant paranasal sinus disease, uncertain if symptoms related to paranasal sinus disease versus ischemic process. * Hypertension * Prediabetes * CAD Plan: * MRI of the brain without contrast, rule out acute stroke. * Hemoglobin A1c * Fasting lipid panel. Patient on Lipitor 20 mg daily. * CTA of neck revealed mild atherosclerotic changes at the left carotid bifurcation. No hemodynamically significant ICA stenosis on either side. Slightly dominant right vertebral artery. * CTA of the head revealed diffuse the small caliber to the vertebral and basi lar arteries likely on a congenital basis. Correlate for any chronic symptoms of vertebrobasilar insufficiency. No large vessel intracranial arterial occlusion, significant stenosis or aneurysmal change. * 2-D echo evaluate for embolic source. * Patient has been on aspirin 81 mg daily for a long time. For now we will add Plavix 75 mg daily, until stroke has been ruled out. * Check acetylcholine receptor binding antibodies, rule out myasthenia * Optimize control of blood pressure. * Neurology will follow. Thank you for the consult.
[2023-03-27] MEDS: METOPROLOL TARTRATE 50 MG TAB PO SCH (08:04)
[2023-03-27] MEDS: CLOPIDOGREL 75 MG TAB PO SCH (08:04)
[2023-03-27] MEDS ORDERED: ASPIRIN 81 MG PO SCH (09:00)
[2023-03-27] MEDS ORDERED: amLODIPine 5 MG TAB PO SCH (09:00)
[2023-03-27] MEDS ORDERED: lisinopriL 5 MG TAB PO SCH (09:00)
[2023-03-27] MEDS ORDERED: MULTIVITAMINS, THERA 1 EACH TAB PO SCH (09:00)
[2023-03-27] MEDS ORDERED: CHOLECALCIFEROL 25 MCG (1000 IU) TABLET PO SCH (09:00)
[2023-03-27] MEDS ORDERED: NON FORMULARY DRUG (Ubidecarenone [Coenzyme Q10] 50 MG Capsule) PO SCH (09:00)
--- NOTE | 2023-03-27 10:37 | P.CRDCN ---
History of Present Illness History of present illness: HISTORY OF PRESENT ILLNESS: This is a 68-year-old male with a past medical history significant for coronary artery disease with previous stenting of the RCA in 2013, hypertension, and hyperlipidemia. Patient follows in the office with Dr. Nolasco. We have been asked to see the patient in consultation for diplopia with recent heart catheterization. Patient examined at the bedside. Patient underwent cardiac catheterization with Dr. Nolasco on 03/25/2023 revealing mild triple-vessel disease, a dominant system, and patent stent in the RCA. Medical management was recommended. The patient states after his procedure and before he was discharged home he began to have double vision in his right eye. He states his vision difficulty continued when he got home and overnight so he came into the hospital yesterday morning for further evaluation. At the time of examination the patient states his double vision has completely resolved. He denies any chest pain or pressure. Denies any shortness of breath. * EKG reveals sinus mechanism with no signs of acute ischemia * CT brain: Stable degenerative and suspected remote ischemic white matter changes. Extensive changes of chronic sinusitis. * CTA: Mild atherosclerotic changes at the left carotid bifurcation. No hemodynamically significant ICA stenosis on either side. No large vessel intracranial arterial occlusion, significant stenosis, or aneurysmal changes seen. * Current home cardiac medications include aspirin 81 mg daily, metoprolol tartrate 100 mg twice a day, rosuvastatin 10 mg at night, amlodipine 5 mg daily, and lisinopril 5 mg daily * Most recent echocardiogram obtained in February 2022 revealing normal EF, mild TR, mild MR REVIEW OF SYSTEMS: At the time of my exam: CONSTITUTIONAL: Denies fever or chills. HEENT: Denies blurred vision, vision changes, or eye pain. Denies hemoptysis CARDIOVASCULAR: Denies chest pain. Denies orthopnea. Denies PND. Denies palp itations RESPIRATORY: Denies shortness of breath. GASTROINTESTINAL: Denies abdominal pain. Denies nausea or vomiting. HEMATOLOGIC: Denies bleeding disorders. GENITOURINARY: Denies any blood in urine. SKIN: Denies pruitis. Denies rash. PHYSICAL EXAM: VITAL SIGNS: Reviewed. GENERAL: Well-developed in no acute distress. HEENT: Head is normocephalic. Pupils are equal, round. Sclerae anicteric. Mucous membranes of the mouth are moist. Neck supple. No JVD or thyromegaly LUNGS: Respirations even and unlabored. Lungs essentially clear to auscultation bilaterally. HEART: Regular rate and rhythm. S1 and S2 heard. ABDOMEN: Soft. Nondistended. Nontender. EXTREMITIES: Normal range of motion. No clubbing or cyanosis. Peripheral pulses intact. No lower extremity edema NEUROLOGIC: Awake and alert. Oriented x 3. ASSESSMENT: Diplopia, right sided Coronary artery disease with previous stenting to the RCA in 2012, status post cardiac catheterization on 03/25/2023 revealing mild triple-vessel disease with patent stent in the RCA Possible remote ischemia noted on CT brain Hypertension Hyperlipidemia PLAN: Continue current cardiac medications Neurology has been consulted. MRI of the brain pending. Per Dr. Koo, symptoms likely secondary to spasm of ophthalmic artery from contrast used in cardiac cath. Symptoms typically last for 48 hours. Patients symptoms are now resolved. Patient may be discharged home today from a cardiac standpoint Nurse practitioner note has been reviewed by physician. Signing provider agrees with the documented findings, assessment, and plan of care. Past Medical History Past Medical History: Coronary Artery Disease (CAD), Cancer, Diabetes Mellitus, Hearing Disorder / Deafness, Hypertension Additional Past Medical History / Comment(s): Right ear deafness, melanoma, no diabetic medications at this time History of Any Multi-Drug Resistant Organisms: None Reported Past Surgical History: Heart Catheterization With Stent, Tonsillectomy Additional Past Surgical History / Comment(s): melanoma removal, right thyroidectomy due to nodules Past Anesthesia/Blood Transfusion Reactions: No Reported Reaction Date of Last Stent Placement:: 2012 Past Psychological History: No Psychological Hx Reported Smoking Status: Former smoker Past Alcohol Use History: None Reported Past Drug Use History: None Reported Medications and Allergies Home Medications Medication Instructions Recorded Confirmed Type Cholecalciferol [Vitamin D3 (25 50 mcg PO DAILY 03/18/20 03/26/23 History Mcg = 1000 Iu)] Metoprolol Tartrate [Lopressor] 100 mg PO BID 03/18/20 03/26/23 History Multivitamins, Thera [Multivitamin 1 tab PO DAILY 03/18/20 03/26/23 History (formulary)] Omeprazole 20 mg PO DAILY 03/18/20 03/26/23 History Aspirin 81 mg PO DAILY 02/12/22 03/26/23 History Rosuvastatin [Crestor] 10 mg PO HS 02/12/22 03/26/23 History Ubidecarenone [Coenzyme Q10] 100 mg PO DAILY 03/22/23 03/26/23 History amLODIPine [Norvasc] 5 mg PO DAILY 03/22/23 03/26/23 History lisinopriL [Zestril] 5 mg PO DAILY 03/22/23 03/26/23 History Allergies Allergy/AdvReac Type Severity Reaction Status Date / Time No Known Allergies Allergy Verified 03/26/23 13:24 Physical Exam Vitals: Vital Signs Temp Pulse Pulse Resp BP BP Pulse Ox 03/27/23 08:00 97.4 F L 78 18 132/73 96 03/27/23 04:00 97.9 F 71 18 136/76 98 03/27/23 02:00 80 18 03/27/23 00:00 97.8 F 80 18 139/78 94 L 03/26/23 20:00 97.6 F 79 18 144/79 96 03/26/23 16:47 66 18 155/84 98 03/26/23 15:30 97.5 F L 72 16 167/87 100 03/26/23 13:00 65 18 147/85 97 03/26/23 12:53 67 18 149/84 96 03/26/23 11:37 67 18 154/93 98 03/26/23 10:35 98.4 F 85 20 166/86 97 Intake and Output 03/26/23 03/27/23 03/27/23 22:59 06:59 14:59 Intake Total 420 Balance 420 Intake: Oral 420 Other: Voiding Method Toilet Toilet # Voids 1 Weight 82.554 kg Results 03/27/23 06:30 03/27/23 06:30 Cardiac Enzymes 03/26/23 03/27/23 Range/Units 12:08 06:30 AST 39 25 (17-59) U/L Coagulation 03/26/23 Range/Units 11:34 PT 10.7 (10.0-12.5) sec APTT 23.3 (22.0-30.0) sec CBC 03/26/23 03/27/23 Range/Units 11:34 06:30 WBC 7.8 6.5 (3.8-10.6) k/uL RBC 5.26 4.93 (4.30-5.90) m/uL Hgb 15.6 14.4 (13.0-17.5) gm/dL Hct 45.4 42.8 (39.0-53.0) % Plt Count 293 277 (150-450) k/uL Comprehensive Metabolic Panel 03/26/23 03/27/23 Range/Units 12:08 06:30 Sodium 138 139 (137-145) mmol/L Potassium 5.5 H 4.2 (3.5-5.1) mmol/L Chloride 108 H 106 (98-107) mmol/L Carbon Dioxide 22 24 (22-30) mmol/L BUN 13 15 (9-20) mg/dL Creatinine 0.62 L 0.87 (0.66-1.25) mg/dL Glucose 124 H 109 H (74-99) mg/dL Calcium 9.2 9.1 (8.4-10.2) mg/dL AST 39 25 (17-59) U/L ALT 32 29 (4-49) U/L Alkaline Phosphatase 47 55 (38-126) U/L Total Protein 7.2 6.5 (6.3-8.2) g/dL Albumin 4.4 3.9 (3.5-5.0) g/dL Current Medications Generic Name Dose Route Start Last Admin Trade Name Freq PRN Reason Stop Dose Admin Acetaminophen 650 mg 03/26/23 15:11 Acetaminophen Tab 325 Mg Tab PO Q6HR PRN Mild Pain or Fever > 100.5 Hydrocodone Bitart/Acetaminophen 1 each 03/26/23 15:11 Hydrocodone/Apap 5-325mg 1 Each Tab PO Q4HR PRN Moderate Pain (Scale 4 to 6) Amlodipine Besylate 5 mg 03/27/23 09:00 03/27/23 08:04 Amlodipine 5 Mg Tab PO 5 mg DAILY EVER Administration Aspirin 81 mg 03/27/23 09:00 03/27/23 08:04 Aspirin 81 Mg PO 81 mg DAILY EVER Administration Atorvastatin Calcium 20 mg 03/26/23 21:00 03/26/23 19:57 Atorvastatin 20 Mg Tab PO 20 mg HS EVER Administration Cholecalciferol 50 mcg 03/27/23 09:00 03/27/23 08:04 Cholecalciferol 25 Mcg (1000 Iu) Tablet PO 50 mcg DAILY EVER Administration Clopidogrel Bisulfate 75 mg 03/26/23 18:00 03/27/23 08:04 Clopidogrel 75 Mg Tab PO 75 mg DAILY EVER Administration Lisinopril 5 mg 03/27/23 09:00 03/27/23 08:04 Lisinopril 5 Mg Tab PO 5 mg DAILY EVER Administration Metoprolol Tartrate 100 mg 03/26/23 21:00 03/27/23 08:04 Metoprolol Tartrate 50 Mg Tab PO 100 mg BID EVER Administration Multivitamins 1 each 03/27/23 09:00 03/27/23 08:04 Multivitamins, Thera 1 Each Tab PO 1 each DAILY EVER Administration Naloxone HCl 0.2 mg 03/26/23 15:11 Naloxone 0.4 Mg/Ml 1 Ml Vial IV Q2M PRN Opioid Reversal Ondansetron HCl 4 mg 03/26/23 15:11 Ondansetron 4 Mg/2 Ml Vial IVP Q8HR PRN Nausea And Vomiting Pantoprazole Sodium 40 mg 03/27/23 07:30 03/27/23 06:42 Pantoprazole 40 Mg Tablet PO 40 mg [id number] EVER Administration Intake and Output 03/26/23 03/27/23 03/27/23 22:59 06:59 14:59 Intake Total 420 Balance 420 Intake: Oral 420 Other: Voiding Method Toilet Toilet # Voids 1 Weight 82.554 kg 03/27/23 06:30 03/27/23 06:30
--- NOTE | 2023-03-27 11:04 | MR ---
EXAMINATION TYPE: MR brain wo con DATE OF EXAM: 03/27/2023 10:39 AM CLINICAL INDICATION:Male, 68 years old with history of Diplopia post cardiac cath; PHH, prior brain o n synapse, double vision post heart cath 03/25/23 COMPARISON: 03/26/2023. TECHNIQUE: Multi planar, multi sequence imaging was performed through the brain including: T1, T2, In version recovery, Diffusion weighted imaging, and gradient echo imaging. No gadolinium was given. FINDINGS: The marshall-white junctions, ventricular system, and cisterns appear unremarkable. Minimal scattered fo ci of high T2 signal intensity are seen within the periventricular white matter. Midline structures s how no abnormality. Diffusion-weighted imaging shows no evidence of restricted diffusion. The suscept ibility weighted images do not reveal any evidence for micro-hemorrhage. The bone marrow signal is within normal limits. Paranasal sinuses and mastoid air cells: Moderate scattered paranasal sinus disease. Visualized orbits: Bilateral aphakia IMPRESSION: 1. No evidence of intracranial mass or acute/subacute infarct. 2. Minimal nonspecific white matter changes, likely secondary to small vessel ischemic disease. 3. Moderate Paranasal sinus disease.
[2023-03-27 11:35] LABS: Glucose,Whole Blood 105 mg/dL (70-110)
[2023-03-27 11:36] VITALS: RESP 16
[2023-03-27 15:53] VITALS: BP 131/72; PULSE 75; TEMP 97.5
--- NOTE | 2023-03-28 06:57 | CA ---
Transthoracic Echo Report Name: Pete Cordoba Age: 68 Gender: M : 1955 Exam Date: 03/27/2023 10:53 Exam Location: [facility] [facility] Ht (in): 68 Wt (lb): 182 Ordering Physician: Taqueria Christie MD Attending/Referring Phys: [employer] Staff Officer Greer Thao RDCS Procedure CPT: Indications: diplopia, stroke/TIA Cardiac Hx: Technical Quality: Good Contrast 1: Total Dose (mL): Contrast 2: Total Dose (mL): MEASUREMENTS (Male / Female) Normal Values 2D ECHO LV Diastolic Diameter PLAX 4.5 cm 4.2 - 5.9 / 3.9 - 5.3 cm LV Systolic Diameter PLAX 3.1 cm IVS Diastolic Thickness 1.2 cm 0.6 - 1.0 / 0.6 - 0.9 cm LVPW Diastolic Thickness 1.1 cm 0.6 - 1.0 / 0.6 - 0.9 cm LV Relative Wall Thickness 0.5 RV Internal Dim ED PLAX 3.5 cm LA Systolic Diameter LX 3.4 cm 3.0 - 4.0 / 2.7 - 3.8 cm LV Diastolic Volume MOD 4C 80.3 cm??? LV Systolic Volume MOD 4C 39.4 cm??? LV Ejection Fraction MOD 4C 51.0 % LV Cardiac Index MOD 4C 1385.7 cm???/min???m??? LV Diastolic Length 4C 7.9 cm LV Systolic Length 4C 6.6 cm LV Diastolic Volume MOD 2C 61.3 cm??? LV Systolic Volume MOD 2C 33.5 cm??? LV Ejection Fraction MOD 2C 45.3 % LV Cardiac Index MOD 2C 940.6 cm???/min???m??? LV Diastolic Length 2C 7.5 cm LV Systolic Length 2C 6.5 cm LA Volume 37.6 cm??? 18 - 58 / 22 - 52 cm??? LA Volume Index 18.7 cm???/m??? 16 - 28 cm???/m??? M-MODE Aortic Root Diameter MM 3.2 cm MV E Point Septal Separation 0.3 cm AV Cusp Separation MM 1.9 cm DOPPLER AV Peak Velocity 98.2 cm/s AV Peak Gradient 3.9 mmHg AI Peak Velocity 282.8 cm/s AI Peak Gradient 32.0 mmHg AI Pressure Half Time 1366.2 ms MV Area PHT 3.0 cm??? Mitral E Point Velocity 51.3 cm/s Mitral A Point Velocity 73.4 cm/s Mitral E to A Ratio 0.7 MV Deceleration Time 253.5 ms MV E' Velocity 3.8 cm/s Mitral E to MV E' Ratio 13.4 TR Peak Velocity 251.4 cm/s TR Peak Gradient 25.3 mmHg Right Ventricular Systolic Press 30.0 mmHg FINDINGS Left Ventricle Left ventricular ejection fraction is estimated at 50-55 %. Left ventricular cavity size normal. Mildly increased left ventricular wall thickness. Right Ventricle Mild right ventricular dilatation. Right ventricular systolic pressure within normal limits. Right Atrium Normal right atrial size. Negative agitated saline bubble study for right to left shunt. Left Atrium Normal left atrial size. Mitral Valve Structurally normal mitral valve. No mitral stenosis, regurgitation or prolapse. Aortic Valve Trileaflet aortic valve. Mild aortic regurgitation. Tricuspid Valve Structurally normal tricuspid valve. Mild tricuspid regurgitation. Pulmonic Valve Structurally normal pulmonic valve. Trace pulmonic regurgitation. Pericardium Normal pericardium. Aorta Normal size aortic root and proximal ascending aorta. CONCLUSIONS 1. Left ventricular systolic function borderline normal 2. No evidence of shunting by contrast bubble study 3. Mild aortic and tricuspid regurgitation with no evidence of pulmonary hypertension Previewed by: Dr. Tamar Nolasco MD (Electronically Signed) Final Date: 28 March 2023 06:56
== END 2023-03-27 16:24 | disposition home or self-care (01) ==
LOC: EC 10:33 → INTOOBSV 15:21 → 3SCARD 15:21
PROVIDERS: ADMIT Internal Medicine; ATTEND Internal Medicine
DX: H53.2 Diplopia (principal); E11.65 Type 2 diabetes mellitus with hyperglycemia; I25.10 Atherosclerotic heart disease of native coronary artery without angina pectoris; I10 Essential (primary) hypertension; E89.0 Postprocedural hypothyroidism; E78.5 Hyperlipidemia, unspecified; H91.91 Unspecified hearing loss, right ear; Z85.820 Personal history of malignant melanoma of skin; Z86.73 Personal history of transient ischemic attack (TIA), and cerebral infarction without residual deficits; Z87.891 Personal history of nicotine dependence; Z95.5 Presence of coronary angioplasty implant and graft; Z79.82 Long term (current) use of aspirin; Z79.899 Other long term (current) drug therapy
CPT/HCPCS: 99285; 36415; 93306; 83519; 80053 ×2; 85652; 85025 ×2; 85610; 85730; 86140; 83036; 70496; 70450; 70498; 70551; G0378 ×3; Q9967